=== PATIENT | male | born 1940 | race Caucasian/White ===

== ENCOUNTER → 2016-03-02 | Outpatient (CLI) | payer OTHER ==
--- NOTE | 2016-03-02 15:16 | DX ---
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 The patient has undergone numerous radiation therapy treatments and presents for baseline as sessment, but has not been reporting any dysphagia or a history of aspiration pneumonia. Technique: The patient was examined in the lateral projection, and this exam was performed in [facility] with Oneyda Mahan, the speech therapist. The patient ingested thin barium, nectar-consistency barium, applesauce coated with barium, a cracker coated with barium, and a barium tablet in applesau ce. Fluoroscopy Time: 3.1 minutes (exposure dose of 10.90 mCi). Comparison Study: None. Findings: There is oropharyngeal propulsion of the bolus into the hypopharynx; however, with thin li quids, there is nonsensate ("silent") epiglottic undercoating, vestibular penetration, and vin aspi ration. The patient was able to expectorate a portion of the material only when prompted. There is lack of appropriate inversion of the epiglottis, which touches the posterior pharyngeal wall. There was no nasopharyngeal reflux. There was some hypopharyngeal pooling in the vallecula. The upper eso phageal sphincter appears relatively normal, with no evidence of cricopharyngeus spasm. There was no aspiration observed with nectar consistency or thicker consistencies. The patient was able to inges t a 13-mm barium tablet, with prompt egress when mixed with the applesauce. Impression: Moderate pharyngeal dysphagia, with silent aspiration of thin liquids. Please also refer to the separate assessments and recommendations by the speech therapist.
== END ==
PROVIDERS: ATTEND Radiology Radiation Oncology
DX: R13.13 Dysphagia, pharyngeal phase (principal); Z85.89 Personal history of malignant neoplasm of other organs and systems; Z92.3 Personal history of irradiation
CPT/HCPCS: 74230; 92611; G8996; G8997; G8998

== ENCOUNTER → 2016-04-26 | Outpatient (CLI) | payer OTHER | PROVIDERS: ATTEND Radiology Radiation Oncology | DX: J38.4 Edema of larynx (principal); C32.9 Malignant neoplasm of larynx, unspecified | CPT/HCPCS: 74230; 92611; G8996; G8997; G8998 ==

== ENCOUNTER → 2016-05-18 | Outpatient (CLI) | payer OTHER ==
[~2016-05-18] MED LIST: IOPAMIDOL (ISOVUE 370) 100 ML BTL IV ONE
[2016-05-18 15:12] LABS: GLOMERULAR FILTRATION RATE > 60
== END ==
LOC: FIMAGING 14:30
PROVIDERS: ATTEND Internal Medicine Cardiovascular Disease
DX: I65.21 Occlusion and stenosis of right carotid artery (principal); I70.8 Atherosclerosis of other arteries; I42.9 Cardiomyopathy, unspecified
CPT/HCPCS: 70498; Q9967

== ENCOUNTER 2017-01-02 07:48 | Inpatient (IN) | payer OTHER ==
--- NOTE | 2017-01-02 07:15 | PDHPUP ---
History & Physical Update H&P update statement: This history and physical update is based on an assessment of the patient which was completed after admission or registration (within 24 hours), but prior to the surgery/procedure. H&P update: H&P reviewed & patient examined, no change in patient's condition since H&P completed
--- NOTE | 2017-01-02 07:44 | GHP ---
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 Of note, he also was found to have 80%-85% stenosis in the left subclavian arter y. These findings came after a possible episode of TIA involving about 20 minutes of a loss of rjaat ce after bumping into a wall in the dark, after waking up. He denies extremity weakness, visual hutson ges, slurred speech, cognition or facial droop. 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 He does have a pacemaker in place. PAST MEDICAL HISTORY: Laryngeal cancer as described above, coronary artery disease as described abov e, type 2 diabetes, hypertension, hyperlipidemia, ischemic cardiomyopathy, left bundle branch block, premature ventricular contractions, history of pneumonia, history of systolic heart failure, left low er extremity varicose veins. PAST SURGICAL HISTORY: AICD placement in 2014, coronary artery bypass graft in 2011, history of tons illectomy and adenoidectomy. MEDICATIONS: Aspirin, atorvastatin, Coreg, furosemide, lorazepam, losartan, metformin, nateglinide, Nitrostat, Prilosec, spironolactone. ALLERGIES: Diovan. FAMILY HISTORY: Stroke and hypertension. SOCIAL HISTORY: The patient does drink on occasion. Is a former tobacco smoker. REVIEW OF SYSTEMS: A 10-point review of systems negative aside from that noted in the HPI. PHYSICAL EXAMINATION: GENERAL: Reveals a well-groomed, pleasant, nontoxic-appearing male. SKIN: W arm and dry. HEENT: Normocephalic, atraumatic. Pupils are equal and round. No neck bruits. No sk in changes over neck from radiation treatment. CARDIAC: Regular rate and rhythm. Pacemaker implant . RESPIRATORY: Clear to auscultation bilaterally without increased work of breathing. EXTREMITIES: Warm, well perfused. No peripheral edema. NEURO: Grossly intact. PSYCH: Mood and affect normal . IMPRESSION: This is a 76-year-old male with a cardiac history and diabetes who is now found to have critical right carotid stenosis with possible history of transient ischemic attack. PLAN: Plan is to proceed with a right carotid endarterectomy with EEG monitoring. We will also get the rep to interrogate his pacer. Risks and options have been discussed including, but not limited t o, bleeding, infection, nerve injury, damage to surrounding structures, restenosis, stroke, heart att ack, and even and he requests to proceed. /[id number]/MODL
[2017-01-02] MEDS ORDERED: THROMBIN (BOVINE) 20,000 UNIT SPRAY TP ONE (08:16)
[2017-01-02] MEDS ORDERED: BUPIVACAINE 0.5% 30 ML SDV ONE (08:16)
[2017-01-02] MEDS ORDERED: BACITRACIN ZINC 14.2 GM OINTTUBE TP ONE (08:16)
[2017-01-02] MEDS ORDERED: ceFAZolin 2 GM/SWFI 2 GM/20 ML SYR IVP ONE (08:16)
[2017-01-02] MEDS ORDERED: PROTAMINE SULFATE 50 MG/5 ML VIAL IVP ONE (08:17)
[2017-01-02] MEDS ORDERED: PAPAVERINE HCL 60 MG/2 ML SDV ONE (08:18)
[2017-01-02] MEDS ORDERED: LR 1,000 ML IV ONE (08:18)
[2017-01-02] MEDS ORDERED: LIDOCAINE 1% 2 ML INJ ID PRN (08:18)
[2017-01-02 08:50] LABS: % IMMATURE GRANULYOCYTES 0.4 % (0.0-1.1); ABSOLUTE IMMATURE GRANULOCYTES 0.02 10^3/uL (0.00-0.10); ADD DIFF? NO; ADD MORPH? NO; ADD SCAN? NO; ATYPICAL LYMPHOCYTE FLAG 0 (0-99); FRAGMENT RBC FLAG 0 (0-99); HEMATOCRIT 34.8 % (40.0-51.0); HEMOGLOBIN 12.1 g/dL (13.7-17.5); LEFT SHIFT FLG 0 (0-99); LIPEMIA HEMOLYSIS FLAG 90 (0-99); MEAN CELL HEMOGLOBIN 32.5 pg (27.9-34.1); MEAN CELL HEMOGLOBIN CONCENTR. 34.8 g/dL (32.4-36.7); MEAN CELL VOLUME 93.5 fL (81.5-99.8); MEAN PLATELET VOLUME 8.7 fL (8.7-11.7); PLATELET CLUMPS FLAG 30 (0-99); PLATELET COUNT 206 10^3/uL (150-400); RED BLOOD CELL COUNT 3.72 10^6/uL (4.40-6.38); RED CELL DISTRIBUTION WIDTH 13.1 % (11.5-15.2)
[2017-01-02 09:08] LABS: ANION GAP 12 mEq/L (8-16); CALCIUM 9.5 mg/dL (8.5-10.4); CARBON DIOXIDE 27 mEq/l (22-31); CHLORIDE 105 mEq/L (97-110); GLOMERULAR FILTRATION RATE > 60; GLUCOSE 107 mg/dL (70-100); POTASSIUM 5.1 mEq/L (3.5-5.2); SODIUM 144 mEq/L (134-144)
--- NOTE | 2017-01-02 09:34 | PDANEPAE ---
ANE History of Present Illness 76 year old male presents for right carotid endarterectomy. ANE Past Medical History - Cardiovascular History Hx Hypertension: Yes Hx Arrhythmias: Yes Hx Chest Pain: No Hx Coronary Artery / Peripheral Vascular Disease: Yes Hx CHF / Valvular Disease: No Hx Palpitations: No - Pulmonary History Hx COPD: No Hx Asthma/Reactive Airway Disease: No Hx Recent Upper Respiratory Infection: No Hx Oxygen in Use at Home: Yes O2 in Use at Home (L/minute): 2 Hx Sleep Apnea: Yes Sleep Apnea Screening Result - Last Documented: Positive - Neurologic History Hx Cerebrovascular Accident: No Hx Seizures: No Hx Dementia: No - Endocrine History Hx Diabetes: Yes Hypothyroid: No Hyperthyroid: No Obesity: no - Renal History Hx Renal Disorders: No - Liver History Hx Hepatic Disorders: No - Neurological & Psychiatric Hx Hx Neurological and Psychiatric Disorders: Yes Neurological / Psychiatric History Comment: NEUROPATHY INTERMITTEN - Cancer History Hx Cancer: Yes Cancer History Comment: POLYP ON VOCAL CORD 2016 - Congenital Disorder History Hx Congenital Disorders: No - GI History GERD: mild Hx Gastrointestinal Disorders: Yes Gastrointestinal History Comment: REFLUX - Other Health History Other Health History: NONE - Chronic Pain History Chronic Pain: No - Surgical History Prior Surgeries: TRIPLE BYPASS 2011 ANE Review of Systems Review of systems is: negative Review of Systems: - Exercise capacity Exercise capacity: >=4 METS METS (RN): 4 METS - Pacemaker Pacemaker Type: Bi-Ventricular Pacemaker Technical Coordinator: [employer] Pacemaker Model: Quadra Assura Pacemaker Mode: DDD Date Pacemaker Last Checked: 10/25/16 ANE Patient History - Allergies Allergies/Adverse Reactions: valsartan [From Diovan] Allergy (Severe, Verified 08/12/14 11:37) Flushing bee stings Allergy (Intermediate, Uncoded 08/12/14 11:37) Other-Enter Comments - Home Medications Home medications: home medication list seen and reviewed Home Medications: RX: Aspirin [Aspirin 325 mg (*)] 325 mg PO DAILY 07/17/14 [Last Taken 12/29/16] RX: Carvedilol [Coreg (*)] 25 mg PO BIDMEAL 07/17/14 [Last Taken 01/02/17 05:30] RX: LORazepam [Ativan (*)] 1 mg PO HS 07/17/14 [Last Taken 01/01/17 19:30] RX: Losartan Potassium [Cozaar] 100 mg PO DAILY 07/17/14 [Last Taken 01/02/17] RX: Metformin HCl [Metformin 1000 mg] 1,000 mg PO BIDMEAL 07/17/14 [Last Taken 01/01/17 17:00] RX: Nateglinide [Starlix] 60 - 90 mg PO TIDMEAL 07/17/14 [Last Taken 01/01/17 16 :00] RX: Omeprazole [Prilosec 20 mg] 20 mg PO BID #0 07/17/14 [Last Taken 01/02/17 05 :25] RX: Spironolactone [Aldactone 25 MG (*)] 25 mg PO DAILY 07/17/14 [Last Taken 02/05 04:00] RX: Ascorbic Acid [Vitamin C 500 mg (*)] 500 mg PO BID 08/12/14 [Last Taken 11/06] RX: Cholecalciferol Vit D3 [Vitamin D3 (*)] 1,000 units PO BID 08/12/14 [Last Taken 12/29/16] RX: Furosemide [Lasix 40 MG (*)] 40 mg PO DAILY 08/12/14 [Last Taken 01/01/17] RX: Herbals/Supplements -Info Only 1 ea PO DAILY 08/12/14 [Last Taken 12/29/16] RX: [place]-3 Fatty Acids [Fish Oil 1000 mg (*)] 1,000 mg PO BID 08/12/14 [Last Taken 12/29/16] Atorvastatin Calcium [Lipitor 40 mg (*)] 40 mg PO HS 12/27/16 [Last Taken 20:00] Carvedilol [Coreg (*)] 12.5 mg PO DAILY@1130 12/27/16 [Last Taken 01/01/17 12:00 ] - NPO status NPO Status: no food or drink >8 hours NPO Since - Liquids (Date): 01/01/17 NPO Since - Liquids (Time): 19:30 NPO Since - Solids (Date): 01/01/17 NPO Since - Solids (Time): 16:00 - Anes Hx Anes Hx: no prior problems - Smoking Hx Smoking Status: Never smoked Marijuana use: No - Alcohol Use Alcohol Use: None - Family Anes Hx Family Anes Hx: neg - N/A Family Hx Anesthesia Complications: NONE ANE Labs/Vital Signs - Labs Result Diagrams: 01/02/17 08:30 01/02/17 08:30 - Vital Signs Vital Signs: reviewed preoperatively; see RN documention for details Blood Pressure: 111/68 Heart Rate: 74 Respiratory Rate: 16 O2 Sat (%): 93 Height: 172.72 cm Weight: 78.018 kg ANE Physical Exam - Airway Neck exam: decreased ROM Mallampati Score: Class 3 Mouth exam: dentures, small mouth opening, abnormal chin - Pulmonary Pulmonary: no respiratory distress - Cardiovascular Cardiovascular: regular rate and rhythym - ASA Status ASA Status: III ANE Anesthesia Plan Anesthesia Plan: general endotracheal anesthesia Total IV Anesthesia: No
[2017-01-02] MEDS ORDERED: fentaNYL 100 MCG/2 ML INJ ONE (09:45)
[2017-01-02] MEDS ORDERED: PROPOFOL 200 MG/20 ML VIAL ONE (09:45)
[2017-01-02] MEDS ORDERED: PHENYLEPHRINE HCL 100 MCG/ML SYR ONE ×2 (09:48→10:48)
[2017-01-02] MEDS ORDERED: ROCURONIUM 50 MG/5 ML VIAL ONE (10:43)
[2017-01-02] MEDS ORDERED: LIDOCAINE 2% 5 ML SDV ONE (10:44)
[2017-01-02] MEDS ORDERED: fentaNYL 100 MCG/2 ML INJ IVP PRN (10:46)
[2017-01-02] MEDS ORDERED: NALOXONE HCL 0.4 MG/ML INJ IVP PRN (10:46)
[2017-01-02] MEDS ORDERED: LR 500 ML IV PRN (10:46)
[2017-01-02] MEDS ORDERED: LABETALOL HCL 50 MG/10 ML SYR IVP PRN (10:46)
[2017-01-02] MEDS ORDERED: OXYCODONE/APAP 5/325 TAB PO PRN (10:46)
[2017-01-02] MEDS ORDERED: ONDANSETRON 4 MG/2 ML VIAL IVP PRN ×2 (10:46→11:49)
[2017-01-02] MEDS ORDERED: ONDANSETRON 4 MG/2 ML VIAL ONE (10:48)
[2017-01-02] MEDS ORDERED: DEXAMETHASONE 4 MG/ML VIAL ONE (10:48)
[2017-01-02] MEDS ORDERED: HEPARIN 10,000 UNIT/10 ML MDV ONE (11:38)
[2017-01-02] MEDS ORDERED: SUGAMMADEX SODIUM 200 MG/2 ML VIAL IVP ONE (11:38)
[2017-01-02] MEDS ORDERED: ENALAPRILAT DIHYDRATE 1.25 MG/ML VIAL IVP PRN (11:52)
[2017-01-02] MEDS ORDERED: NATEGLINIDE 60 MG TAB PO SCH (12:00)
[2017-01-02] MEDS ORDERED: D5W 1/2 NS 1,000 ML IV SCH (12:00)
[2017-01-02] MEDS ORDERED: HYDROmorphONE/DILAUDID 1 MG/ML INJ ONE (12:23)
[2017-01-02] MEDS: HYDROmorphONE/DILAUDID 1 MG/ML INJ IVP PRN ×3 (12:24→12:48)
--- NOTE | 2017-01-02 14:01 | GCON ---
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 HISTORY OF PRESENT ILLNESS: The patient is an extremely pleasant 76-year-old white male with a past medical history of laryngeal cancer, coronary artery disease, hypertension, diabetes, hyperlipidemia, ischemic cardiomyopathy, left bundle branch block, and varicose veins. He again was found to have a n 80% to 85% stenosis of the right internal carotid artery. In discussion with the patient, he state s overall he is doing quite well. He admits to being hungry. He states the pain is tolerable. Fermin es any cough or productive sputum. There is no chest pain, pleuritic-type chest pain or angina equiv alent. There is no fever or night sweats. He is currently resting comfortably. PAST MEDICAL HISTORY: As above. PAST SURGICAL HISTORY: He had an AICD placed, as well as coronary artery bypass graft, and tonsils a nd adenoids removed. ALLERGIES: Diovan. SOCIAL HISTORY: Previous heavy smoker, none for some time. No significant alcohol use. MEDICATIONS: At home include spironolactone, Prilosec, aspirin, atorvastatin, Coreg, Lasix, lorazepa m, losartan, metformin, nateglinide, and Nitrostat. PHYSICAL EXAM: VITAL SIGNS: Blood pressure 96/59. Pulse is 75, respirations 17. He is afebrile, o xygen saturation 96% on room air. GENERAL: He is a well-developed, well-nourished, elderly white ma le, resting comfortably in no acute distress. HEENT: Eyes are PERRL, EOMI. Throat shows no erythema or tonsillar hypertrophy. NECK: Supple. The right side of his neck is bandaged. HEART: Regular rate and rhythm, with a 2/6 systolic murmur at the left sternal border without radiation. LUNGS: Di minished breath sounds, but no wheeze. ABDOMEN: Soft, nontender. Bowel sounds are present. EXTREM ITIES: No clubbing, cyanosis, or edema. LABORATORY DATA: White count 5.3, hemoglobin 12, hematocrit 34. Platelet count is 206. Sodium 144, potassium 5.1, chloride 105. CO2 is 27, BUN 43, creatinine 1.0. Glucose is 107. IMPRESSION: 1. Carotid stenosis. 2. Status post right carotid endarterectomy. 3. History of laryngeal cancer. 4. Coronary artery disease. 5. Ischemic cardiomyopathy. 6. Diabetes. 7. Hypertension. RECOMMENDATIONS: 1. Adequate pain control. 2. Adequate blood pressure control. 3. Deep vein thrombosis and pulmonary embolism prophylaxis. 4. Stress ulcer prophylaxis. 5. Aggressive blood sugar control. /[id number]/MODL
[2017-01-02] MEDS: NATEGLINIDE 60 MG TAB PO SCH ×2 (14:31→18:17)
--- NOTE | 2017-01-02 15:56 | ASMTCMCOM ---
CM Note CM Note Notes: 76 year old male admitted for CP, Cardiomyopathy, Carotid stenosis. He has a hx of CAD and bypass, pacer, laryngeal CA, TIA. patient had a R endarterectomy. May not have discharge needs. CM to follow. Date Signed: 01/02/2017 03:55 PM Electronically Signed By:Yeimi Roth LCSW
[2017-01-02] MEDS ORDERED: DOPamine/DEXTROSE/250 ML BAG IV ONE (16:09)
[2017-01-02] MEDS ORDERED: PANTOPRAZOLE SODIUM 40 MG TAB PO ONE (17:33)
[2017-01-02] MEDS: metFORMIN HCL 500 MG TAB PO SCH (17:34)
[2017-01-02] MEDS: CARVEDILOL 25 MG TAB PO SCH (17:35)
--- NOTE | 2017-01-02 17:57 | GOP ---
[f rep st] OPERATIVE REPORT DATE OF OPERATION: 01/02/2017 SURGEON: Manoj Garduno MD [facility] ROLLER PERSON: ALICIA Burnett. ANESTHESIOLOGIST: Frantz Anderson MD. PREOPERATIVE DIAGNOSIS: Right carotid stenosis. POSTOPERATIVE DIAGNOSIS: Right carotid stenosis. PROCEDURE PERFORMED: Right carotid endarterectomy with EEG monitoring and Dacron patch. FINDINGS: Patient was found to have good neurologic function during the procedure and after the procedure, he did have some unusual evoked potential findings on his right median nerve, which may have been from external pressure on the OR table rather than from any vascular insufficiency flow problems. ESTIMATED BLOOD LOSS: Less than 50 cc. DESCRIPTION OF PROCEDURE: The patient taken to the operating room, received satisfactory general endotracheal anesthesia by Dr. Anderson. He was placed in the supine position, prepped and draped in usual sterile fashion. He was fully heparinized prior to induction of anesthesia, prepped and draped in usual sterile fashion. Incision was made along the anterior border of the sternocleidomastoid muscle and carried down through the platysma and superficial fascia. The carotid arterial tree was exposed. The facial vein was doubly ligated and divided, and the internal carotid, external carotid and common carotid arteries were all encircled with vessel loops. External carotid incorporated the inferior thyroid. The epiglottal nerve was elevated up, encircled with vessel loop and moved away from the carotid bifurcation. This required division of the ansa hypoglossis which was divided with hemoclips. The dissection extended well up behind the jaw and the vessels were all controlled with vessel loops. After adequate exposure was obtained, the patient was given additional heparin and after adequate circulation, the vessels were occluded. An incision was made in the common carotid artery and then opened up through the internal carotid to well above the markedly calcified stenotic plaque. Plaque extended proximally down the common carotid for some length making our arteriotomy nearly 3 inches in length in the final result. He had excellent backflow from the internal carotid artery and initially, no shunt was used. Expeditious endarterectomy was then done, removing this calcified plaque, which extended from the common carotid all the way up approximately 2.5 cm up the internal carotid artery. This was all removed. The vessels were all flushed. we did notice some unusual findings on his right median nerve, so a shunt was placed, which appeared to resolve the issue, although anatomically it did not match up. It may have been from external pressure against his arm or something during the procedure. The endarterectomy site was cleaned of all debris and all irrigated copiously. A Dacron patch was then placed on the carotid artery and sutured in place with a Hemashield 7 suture. We got nearly complete on the arteriotomy. The shunt was removed and all vessels were back flushed. The arteriotomy was completed and then flow was established through the external carotid artery and then through the internal carotid. He had no significant further EEG changes and all the changes noted had been returned to baseline shortly after the shunt was placed, and after any external pressure was relieved from his tucked right arm. Heparin was reversed with protamine. Suture line appeared to be hemostatic. Two additional small sutures were placed at leak sites. Although these were improving with a protamine reversal. The wound was sprayed with some topical thrombin, irrigated and then closed in layers using 3-0 Vicryl for the cervical fascia, 3-0 Vicryl for the platysma and a 4-0 Monocryl subcuticular stitch for the skin. The posterior superficial layers were infiltrated with 0.5% Marcaine. COMPLICATIONS: There were no complications. Tolerated the procedure well. /[id number]/MODL MTDD
[2017-01-02] MEDS ORDERED: NON-FORMULARY NEW DRUG (Metformin Hcl [Metformin 1000 Mg] 1,000 MG) PO SCH (18:00)
[2017-01-02] MEDS: OXYCODONE/APAP 5/325 TAB PO PRN ×2 (18:02→22:16)
[2017-01-02] MEDS ORDERED: NS 500 ML IV ONE (18:02)
[2017-01-02] MEDS: CALCIUM CARBONATE 500 MG CHEWABLE TAB PO PRN ×3 (18:16→23:24)
[2017-01-02] MEDS: ATORVASTATIN CALCIUM 40 MG TAB PO SCH (19:41)
[2017-01-02] MEDS: OMEPRAZOLE 20 MG PO SCH (20:38)
[2017-01-02] MEDS ORDERED: PANTOPRAZOLE SODIUM 40 MG TAB PO SCH (21:00)
[2017-01-02] MEDS ORDERED: LORazepam 0.5 MG TAB PO SCH (21:00)
[2017-01-02] MEDS ORDERED: ALBUMIN 5% 500 ML IV ONE (21:00)
--- NOTE | 2017-01-02 21:22 | POSTANESTH ---
Post Anesthetic Evaluation Cardiovascular Status: Normal, Stable, Similar to Pre-Op Cond Respiratory Status: Normal, Stable, Similar to Pre-op Cond. Level of Consciousness/Mental Status: Can Participate in Eval, Alert and Oriented Pain Control: Adequate, Prn Tx Ordered Nausea/Vomiting Control: Adequate, Prn Tx Ordered Complications Possibly Related to Anesthesia: None Noted
[2017-01-03] MEDS: HYDROmorphONE/DILAUDID 1 MG/ML INJ IVP PRN (02:22)
[2017-01-03] MEDS: CALCIUM CARBONATE 500 MG CHEWABLE TAB PO PRN ×2 (04:50→13:24)
[2017-01-03 05:00] LABS: HEMATOCRIT 26.1 % (40.0-51.0); HEMOGLOBIN 8.9 g/dL (13.7-17.5)
[2017-01-03 05:21] LABS: ANION GAP 10 mEq/L (8-16); CALCIUM 8.4 mg/dL (8.5-10.4); CARBON DIOXIDE 24 mEq/l (22-31); CHLORIDE 106 mEq/L (97-110); CREATININE 0.9 mg/dL (0.7-1.3); GLOMERULAR FILTRATION RATE > 60; GLUCOSE 106 mg/dL (70-100); POTASSIUM 4.6 mEq/L (3.5-5.2); SODIUM 140 mEq/L (134-144)
[2017-01-03] MEDS: OMEPRAZOLE 20 MG PO SCH ×2 (06:39→20:19)
[2017-01-03] MEDS: NATEGLINIDE 60 MG TAB PO SCH ×3 (07:40→17:50)
[2017-01-03] MEDS: CARVEDILOL 25 MG TAB PO SCH ×2 (07:44→17:50)
[2017-01-03] MEDS: LOSARTAN POTASSIUM 50 MG TAB PO SCH (07:44)
[2017-01-03] MEDS: metFORMIN HCL 500 MG TAB PO SCH ×2 (07:44→17:50)
[2017-01-03] MEDS: SPIRONOLACTONE 25 MG TAB PO SCH (07:45)
[2017-01-03] MEDS: ASPIRIN 325 MG TAB PO SCH (07:45)
[2017-01-03] MEDS: FUROSEMIDE 40 MG TAB PO SCH (07:45)
[2017-01-03] MEDS ORDERED: NON-FORMULARY NEW DRUG (Losartan Potassium [Cozaar] 100 MG) PO SCH (09:00)
[2017-01-03] MEDS: OXYCODONE/APAP 5/325 TAB PO PRN ×2 (10:30→20:18)
[2017-01-03] MEDS: CARVEDILOL 6.25 MG TAB PO SCH (11:44)
--- NOTE | 2017-01-03 17:00 | SOAPPROG ---
SOAP Progress Note Assessment/Plan: Assessment/Plan: 76 Y M s/p CEA. POD#1. Doing well. Pain controlled. Neuro exam intact. BP stable. Off dopamine. Dispo: med surg status. Likely home tomorrow. S: didn't sleep well last night. pain meds helping. denies weakness or any stroke like symptoms. O: alert, nad inc cdi, min swelling. pupils equal, round no wob rrr abd soft neuro grossly intact 01/03/17 16:58 Objective: Vital Signs Temp Pulse Resp BP Pulse Ox 36.8 C 89 16 107/37 L 88 L 01/03/17 15:23 01/03/17 15:23 01/03/17 15:23 01/03/17 15:23 01/03/17 15:23 Laboratory Results 01/03/17 04:45 01/03/17 04:45 01/02/17 01/03/17 01/04/17 05:59 05:59 05:59 Intake Total 3541 Output Total 950 175 Balance 2591 -175 ICD10 Worksheet Patient Problems: Problems Problem Status Onset Cardiomyopathy Acute Chest pain Acute Left bundle branch block Acute
[2017-01-03] MEDS: ATORVASTATIN CALCIUM 40 MG TAB PO SCH (20:19)
[2017-01-03] MEDS: LORazepam 1 MG TAB PO PRN (20:19)
[2017-01-04] MEDS: OMEPRAZOLE 20 MG PO SCH ×2 (07:16→19:59)
[2017-01-04] MEDS: NATEGLINIDE 60 MG TAB PO SCH ×3 (07:23→17:59)
[2017-01-04] MEDS: FUROSEMIDE 40 MG TAB PO SCH ×2 (07:24→07:32)
[2017-01-04] MEDS: CARVEDILOL 25 MG TAB PO SCH ×3 (07:24→18:11)
[2017-01-04] MEDS: ASPIRIN 325 MG TAB PO SCH (07:24)
[2017-01-04] MEDS: metFORMIN HCL 500 MG TAB PO SCH ×2 (07:24→18:00)
[2017-01-04] MEDS: SPIRONOLACTONE 25 MG TAB PO SCH ×2 (07:24→07:32)
[2017-01-04] MEDS: ENOXAPARIN 40 MG/0.4 ML SYR SC SCH (07:24)
[2017-01-04] MEDS: LOSARTAN POTASSIUM 50 MG TAB PO SCH (07:30)
--- NOTE | 2017-01-04 09:02 | SOAPPROG ---
SOAP Progress Note Assessment/Plan: Assessment/Plan: 76 Y M s/p CEA. POD#2. Hypotensive this am. systolic's 70's but now in high 90's while awake. Holding antihypertensives. H&H down, but doubt active bleeding. Neuro exam intact. Wounds intact. Will continue to observe today. Continue med surg status. Doubt discharge today 2/2 blood pressure concerns. Pt has roommate, but she is often not home. S: Finally slept well. Denies weakness or any stroke like symptoms. O: alert, nad inc cdi, min swelling. pupils equal, round no wob rrr abd soft neuro grossly intact 01/04/17 08:59 Objective: Vital Signs Temp Pulse Resp BP Pulse Ox 37.3 C 88 15 98/56 L 95 01/03/17 20:21 01/04/17 07:31 01/03/17 20:21 01/04/17 08:22 01/03/17 20:21 Laboratory Results 01/03/17 04:45 01/03/17 04:45 01/03/17 01/04/17 01/05/17 05:59 05:59 05:59 Intake Total 3541 1500 Output Total 950 575 Balance 7236 795 ICD10 Worksheet Patient Problems: Problems Problem Status Onset Cardiomyopathy Acute Chest pain Acute Left bundle branch block Acute
[2017-01-04] MEDS: CARVEDILOL 6.25 MG TAB PO SCH (12:01)
[2017-01-04] MEDS: HYDROmorphONE/DILAUDID 1 MG/ML INJ IVP PRN (19:58)
[2017-01-04] MEDS: LORazepam 1 MG TAB PO PRN (19:59)
[2017-01-04] MEDS: ATORVASTATIN CALCIUM 40 MG TAB PO SCH (19:59)
[2017-01-05] MEDS: OMEPRAZOLE 20 MG PO SCH (07:25)
[2017-01-05] MEDS: metFORMIN HCL 500 MG TAB PO SCH (07:26)
[2017-01-05] MEDS: CARVEDILOL 25 MG TAB PO SCH (07:26)
[2017-01-05] MEDS: ASPIRIN 325 MG TAB PO SCH (07:26)
[2017-01-05] MEDS: SPIRONOLACTONE 25 MG TAB PO SCH (07:26)
[2017-01-05] MEDS: NATEGLINIDE 60 MG TAB PO SCH ×2 (07:27→12:10)
[2017-01-05] MEDS: ENOXAPARIN 40 MG/0.4 ML SYR SC SCH (07:27)
[2017-01-05] MEDS: FUROSEMIDE 40 MG TAB PO SCH (07:29)
[2017-01-05] MEDS: LOSARTAN POTASSIUM 50 MG TAB PO SCH (07:30)
[2017-01-05 08:01] VITALS: BP 119/59; PULSE 79; RESP 18; TEMP 97.6; O2SAT 95
[2017-01-05] MEDS: CARVEDILOL 6.25 MG TAB PO SCH (11:29)
--- NOTE | 2017-01-05 12:25 | SOAPPROG ---
ANDRE Progress Note Assessment/Plan: Assessment: Neuro intact/wound okay/vital signs stable/no new problems Plan: Home today/follow-up in the office next week/continue aspirin and statin and his blood pressure meds 01/05/17 12:24 Objective: Vital Signs Temp Pulse Resp BP Pulse Ox 36.4 C 79 18 119/59 L 95 01/05/17 08:00 01/05/17 08:00 01/05/17 08:00 01/05/17 08:00 01/05/17 08:00 Laboratory Results 01/03/17 04:45 01/03/17 04:45 01/04/17 01/05/17 01/06/17 05:59 05:59 05:59 Intake Total 1500 Output Total 575 Balance 925 ICD10 Worksheet Patient Problems: Problems Problem Status Onset Cardiomyopathy Acute Chest pain Acute Left bundle branch block Acute
--- NOTE | 2017-01-05 12:33 | ASMTCMCOM ---
CM Note CM Note Notes: Spoke w/RN, anticipate pt will dc home w/support of family when medically stable. CM available for any changes. Date Signed: 01/05/2017 12:33 PM Electronically Signed By:Precious Perez RN
--- NOTE | 2017-01-05 13:53 | ASDISCHSUM ---
Discharge Information Plan Status:Home with No Needs Medically Cleared to Leave: Discharge Date:01/05/2017 12:50 PM CM D/C Disposition:Home, Routine, Self-Care ADT D/C Disposition:Home, Routine, Self-Care Projected Discharge Date:01/05/2017 12:50 PM Transportation at D/C:Family Discharge Delay Reason: Follow-Up Date:01/05/2017 12:50 PM Discharge Slot: Final Diagnosis:Carotid stenosis Placement Information Patient Contact Information Contact Name:TING Relationship:Daughter Address: City: [facility] Phone: [facility]/Zip Code:[place] Email: Financial Information Financial Class:Medicare Advantage Plans Primary Plan Desc:[facility] ADVANTAGE PLANS Primary Plan Number:[id number] Secondary Plan Desc: Secondary Plan Number: Assessment Information [facility] CM Progress Note CM Note CM Note Notes: 76 year old male admitted for CP, Cardiomyopathy, Carotid stenosis. He has a hx of CAD and bypass, pacer, laryngeal CA, TIA. patient had a R endarterectomy. May not have discharge needs. CM to follow. Date Signed: 01/02/2017 03:55 PM Electronically Signed By:Yeimi Roth LCSW [facility] CM Progress Note CM Note CM Note Notes: Spoke w/RN, anticipate pt will dc home w/support of family when medically stable. CM available for any changes. Date Signed: 01/05/2017 12:33 PM Electronically Signed By:Precious Perez RN Intervention Information
== END 2017-01-05 12:50 | disposition home or self-care (01) | DRG 39 ==
LOC: F3N 07:48 → F2N 13:09 → F3E 01-04 12:51
PROVIDERS: ADMIT Surgery; ATTEND Surgery
DX: I65.21 Occlusion and stenosis of right carotid artery (principal); I25.10 Atherosclerotic heart disease of native coronary artery without angina pectoris; I10 Essential (primary) hypertension; E11.9 Type 2 diabetes mellitus without complications; E78.5 Hyperlipidemia, unspecified; Z95.0 Presence of cardiac pacemaker; Z95.1 Presence of aortocoronary bypass graft; Z85.21 Personal history of malignant neoplasm of larynx; Z92.3 Personal history of irradiation
CPT/HCPCS: C1768; J0690; J1100; J1170; J1265; J1644; J1650; J2370; J2405; J2440; J2704; J2720; J3010; P9041

== ENCOUNTER → 2017-07-28 | Outpatient (CLI) | payer OTHER | LOC: FIMAGING 07:01 | PROVIDERS: ATTEND Registered Nurse | DX: K40.90 Unilateral inguinal hernia, without obstruction or gangrene, not specified as recurrent (principal); E87.5 Hyperkalemia ==

== ENCOUNTER 2017-09-14 07:01 | Day surgery (SDC) | payer OTHER ==
--- NOTE | 2017-09-11 10:51 | GHP ---
[f rep st] PREOP HISTORY AND PHYSICAL DATE OF ADMISSION: 09/14/2017 CHIEF COMPLAINT: Left inguinal hernia. HISTORY OF PRESENT ILLNESS: The patient is a 76-year-old male known to us from a right carotid endar terectomy in December of 2016, who also has a history of AICD placement and coronary artery bypass gr aft x3, who presents to us with a new left inguinal hernia. He thinks it started with leg presses. He says he works out regularly for the past 5 years. He notices a palpable bulge with pressure in hi s left groin. He has no urinary symptoms. He denies chronic cough, constipation, or prior abdominal surgery. PAST MEDICAL HISTORY: Anemia, angina, anxiety, ascending aorta dilation, AICD, coronary artery disea se, cardiomyopathy, carotid artery disease, depression, diabetes mellitus type 2, eczema, hyperlipide stepan, hypertension, ischemic cardiomyopathy, laryngeal cancer, left bundle branch block, nocturnal hyp oxia, pneumonia, PVCs, peripheral vascular disease, systolic heart failure (acute on chronic), varico se veins of the left lower extremity. PAST SURGICAL HISTORY: AICD placement, carotid endarterectomy, coronary artery bypass graft, tonsill ectomy and adenoidectomy. MEDICATIONS: Vitamin C 500 mg, aspirin 325 mg, atorvastatin 40 mg, cholecalciferol 1000 units, Coreg 25 mg, furosemide 40 mg, lorazepam 1 mg, losartan 100 mg, metformin 1000 mg, nateglinide 60 mg, Pril osec 20 mg, spironolactone 25 mg. ALLERGIES: Diovan. FAMILY MEDICAL HISTORY: Cerebrovascular accident, hypertension. SOCIAL HISTORY: Former tobacco user, alcohol. REVIEW OF SYSTEMS: Ten-point review of systems was performed and is negative, aside from what is in the HPI. PHYSICAL EXAM: GENERAL: Reveals an alert and oriented 76-year-old male who is well developed and we ll nourished. HEENT: Normocephalic, atraumatic. Pupils are equal and round. NECK: Supple, no nec k bruits, well-healed scar. CARDIAC: Regular rate and rhythm, without murmurs. RESPIRATORY: Clear to auscultation bilaterally, without wheezes, rhonchi, or rales. ABDOMEN: Soft, nontender, nondist ended. A small reducible left inguinal hernia. No right inguinal hernias appreciated. : No test icular tenderness, or masses. MUSCULOSKELETAL: Moves all extremities equally, warm, without edema. NEURO: Grossly intact. PSYCHIATRIC: Normal mood and affect. IMPRESSION/PLAN: This is a 76-year-old male with a small reducible left inguinal hernia. We discuss ed both laparoscopic and open surgical repair. He is a good candidate for laparoscopic repair; howev er, he knows that there is always a possibility that we may have to make an open incision. He did re ceive cardiac clearance by Dr. Gilma Keller. He has a pacemaker and defibrillator. We discussed all o ptions and risks fully. Risks of surgery include, but are not limited to, infection, bleeding, testi cular pain, spermatic cord injury, reherniation, heart attack, and . Patient understands and wi shes to proceed with surgery. /[id number]/MODL
[2017-09-14] MEDS ORDERED: ceFAZolin 2 GM/DEXTROSE 100 ML IV ONE (07:24)
[2017-09-14] MEDS ORDERED: BUPIVACAINE 0.25% 30 ML SDV ONE ×2 (07:25→08:58)
[2017-09-14] MEDS ORDERED: LR 1,000 ML IV ONE (07:25)
[2017-09-14] MEDS ORDERED: LIDOCAINE 1% 2 ML INJ ID PRN (07:53)
[2017-09-14] MEDS ORDERED: LIDOCAINE 1% 2 ML INJ ONE (07:56)
--- NOTE | 2017-09-14 08:09 | PDANEPAE ---
ANE Past Medical History - Cardiovascular History Hx Hypertension: Yes Hx Arrhythmias: Yes Hx Chest Pain: No Hx Coronary Artery / Peripheral Vascular Disease: Yes Hx CHF / Valvular Disease: No Hx Palpitations: No Cardiovascular History Comment: CARDIOMYOPATHY (EF 45%) - Pulmonary History Hx COPD: No Hx Asthma/Reactive Airway Disease: No Hx Recent Upper Respiratory Infection: No Hx Oxygen in Use at Home: Yes O2 in Use at Home (L/minute): 1.5 Hx Sleep Apnea: No Sleep Apnea Screening Result - Last Documented: Positive Pulmonary History Comment: HS HYPOXIA USES OXYGEN - Neurologic History Hx Cerebrovascular Accident: No Hx Seizures: No Hx Dementia: No - Endocrine History Hx Diabetes: Yes Hypothyroid: No Hyperthyroid: No Obesity: no Endocrine History Comment: NIDDM - Renal History Hx Renal Disorders: No - Liver History Hx Hepatic Disorders: No - Neurological & Psychiatric Hx Hx Neurological and Psychiatric Disorders: Yes Neurological / Psychiatric History Comment: NEUROPATHY INTERMITTENT - Cancer History Hx Cancer: Yes 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 TOUCH OF EXCEMA MAINLY IN WINTER. CALDERON CATARACT. FULL DENTURES - Chronic Pain History Chronic Pain: Yes (LT ING) - Surgical History Prior Surgeries: RT CAROTID ENDARECTOMY 12/2016. DEFIBRILATOR 07/2014. TRIPLE BYPASS 2011. T&A ANE Review of Systems Review of Systems: - Exercise capacity METS (RN): 5 METS - Pacemaker Pacemaker Type: Bi-Ventricular Pacemaker Cardiac Sonographer: St. Sudeep Date Pacemaker Last Checked: 05/01/2017 ANE Patient History - Allergies Allergies/Adverse Reactions: valsartan [From Diovan] Allergy (Severe, Verified 08/12/14 11:37) Flushing bee stings Allergy (Intermediate, Uncoded 08/12/14 11:37) Other-Enter Comments - Home Medications Home Medications: Carvedilol [Coreg (*)] 25 mg PO BIDMEAL 07/17/14 [Last Taken 09/14/17 04:45] LORazepam [Ativan (*)] 1 mg PO HS 07/17/14 [Last Taken 09/13/17] Losartan Potassium [Cozaar] 100 mg PO DAILY 07/17/14 [Last Taken 09/14/17 04:45] Metformin HCl [Metformin 1000 mg] 1,000 mg PO BIDMEAL 07/17/14 [Last Taken 09/12] Nateglinide [Starlix] 60 - 90 mg PO TIDMEAL 07/17/14 [Last Taken 09/13/17] Omeprazole [Prilosec 20 mg] 20 mg PO BID #0 07/17/14 [Last Taken 09/14/17 04:45] Spironolactone [Aldactone 25 MG (*)] 25 mg PO DAILY 07/17/14 [Last Taken ] Ascorbic Acid [Vitamin C 500 mg (*)] 500 mg PO BID 08/12/14 [Last Taken 09/12/17 ] Cholecalciferol Vit D3 [Vitamin D3 (*)] 1,000 units PO BID 08/12/14 [Last Taken 09/12/17] Furosemide [Lasix 40 MG (*)] 40 mg PO DAILY 08/12/14 [Last Taken 09/13/17] Herbals/Supplements -Info Only 1 ea PO DAILY 08/12/14 [Last Taken 09/12/17] Atorvastatin Calcium [Lipitor 40 mg (*)] 40 mg PO HS 12/27/16 [Last Taken 20:00] Carvedilol [Coreg (*)] 12.5 mg PO DAILY@1130 12/27/16 [Last Taken 09/13/17 12:00 ] - NPO status NPO Since - Liquids (Date): 09/14/17 NPO Since - Liquids (Time): 04:45 NPO Since - Solids (Date): 09/13/17 NPO Since - Solids (Time): 17:00 - Anes Hx Anes Hx: no prior problems - Smoking Hx Smoking Status: Never smoked Marijuana use: No - Family Anes Hx Family Anes Hx: neg - N/A Family Hx Anesthesia Complications: NONE ANE Labs/Vital Signs - Vital Signs Blood Pressure: 128/82 Heart Rate: 74 Respiratory Rate: 12 O2 Sat (%): 93 Height: 172.72 cm Weight: 76.204 kg ANE Physical Exam - Airway Neck exam: FROM Mallampati Score: Class 2 Mouth exam: dentures - Pulmonary Pulmonary: no respiratory distress, no rales or rhonchi, clear to auscultation - Cardiovascular Cardiovascular: regular rate and rhythym - ASA Status ASA Status: III ANE Anesthesia Plan Anesthesia Plan: general endotracheal anesthesia Total IV Anesthesia: No
[2017-09-14] MEDS ORDERED: fentaNYL 100 MCG/2 ML INJ ONE (08:59)
[2017-09-14] MEDS ORDERED: REMIFENTANIL HCL 1 MG VIAL ONE (08:59)
[2017-09-14] MEDS ORDERED: ONDANSETRON 4 MG/2 ML VIAL ONE ×2 (08:59→14:58)
[2017-09-14] MEDS ORDERED: PROPOFOL/EMULSION 500 MG/50 ML BOTTLE IV ONE (08:59)
[2017-09-14] MEDS ORDERED: KETOROLAC 30 MG/1 ML SDV ONE (09:00)
[2017-09-14] MEDS ORDERED: LIDOCAINE 2% 5 ML SDV ONE (09:00)
[2017-09-14] MEDS ORDERED: PHENYLEPHRINE HCL 100 MCG/ML SYR ONE (09:22)
[2017-09-14] MEDS ORDERED: oxyCODONE IR 5 MG TAB PO PRN (09:39)
[2017-09-14] MEDS ORDERED: ACETAMINOPHEN 500 MG TAB PO PRN (09:39)
[2017-09-14] MEDS ORDERED: PROMETHAZINE HCL 25 MG/ML INJ IVP PRN (09:39)
[2017-09-14] MEDS ORDERED: LR 500 ML IV PRN (09:39)
[2017-09-14] MEDS ORDERED: NALOXONE HCL 0.4 MG/ML INJ IVP PRN (09:39)
[2017-09-14] MEDS ORDERED: HYDROCODONE/APAP 5/325 TAB PO PRN (09:39)
[2017-09-14] MEDS ORDERED: fentaNYL 100 MCG/2 ML INJ IVP PRN (09:39)
[2017-09-14] MEDS ORDERED: ONDANSETRON 4 MG/2 ML VIAL IVP PRN (09:39)
[2017-09-14] MEDS ORDERED: ROCURONIUM 50 MG/5 ML VIAL ONE (09:42)
[2017-09-14] MEDS ORDERED: NEOSTIGMINE METHYLSULFATE 5 MG/5 ML SYR ONE (10:14)
[2017-09-14] MEDS ORDERED: GLYCOPYRROLATE 0.2 MG/1 ML VIAL ONE ×5 (10:14→10:25)
--- NOTE | 2017-09-14 10:27 | POSTOPPROG ---
Post Op Note Date of Operation: 09/14/17 Surgeon: Manoj Garduno Plastic Battery Assembler: Tylor Anesthesiologist: Phani Anesthesia: GET(General Endotracheal) Pre-op Diagnosis: Left inguinal hernia Post-op Diagnosis: same Indication: pain Procedure: Lap LIH repair Findings: No RIH Inf/Abcess present in the surg proc area at time of surgery?: No Depth: Organ Space EBL: Minimal
--- NOTE | 2017-09-14 11:30 | POSTANESTH ---
Post Anesthetic Evaluation Cardiovascular Status: Normal, Stable Respiratory Status: Normal, Stable Level of Consciousness/Mental Status: Can Participate in Eval Pain Control: Adequate, Prn Tx Ordered Nausea/Vomiting Control: Adequate, Prn Tx Ordered Complications Possibly Related to Anesthesia: None Noted
[2017-09-14 16:24] VITALS: BP 152/84
[2017-09-14] MEDS ORDERED: CEPACOL LOZENGE PO ONE (17:25)
--- NOTE | 2017-09-15 13:24 | GOP ---
[f rep st] OPERATIVE REPORT DATE OF OPERATION: 09/14/2017 SURGEON: Manoj Garduno MD PREOPERATIVE DIAGNOSIS: Left inguinal hernia. POSTOPERATIVE DIAGNOSIS: Left inguinal hernia. PROCEDURE PERFORMED: Laparoscopic left inguinal hernia repair and exploration of the right. FINDINGS: Patient was found to have a large indirect defect on the left, which consists of primarily lipoma. On the right there was no evidence of true herniation. Exposure was somewhat difficult to d o because of the weakness of his peritoneum, which made it difficult to dissect the space free. DESCRIPTION OF PROCEDURE: The patient was taken to the operating room where he received a satisfacto ry general endotracheal anesthesia by Dr. Jeronimo. He was placed in supine position, prepped and draped in usual sterile fashion. An infraumbilical incision was made. Dissection was carried down the rectus sheath, which was incised. A subfascial tunnel was developed in the preperitoneal space th at was dissected free with a balloon dissector, which was replaced with CO2 insufflation trocar. Our exposure was limited because of stretching and tearing of the peritoneum from the balloon dissectors . Two other trocars were placed in lower abdominal midline under direct vision. Monico ligament was exposed bilaterally. The cords were mobilized bilaterally. Peritoneum was dissected off the cord s tructures. On the left side there is a large lipomatous tissue and hernia sac were dissected free and reduced. The lateral space was dissected free outside the cord structures. Hemostasis was assured. The 3D mesh patch was introduced and placed over the inguinal floor. It was anchored in place with AbsorbaTack, securing it to Monico ligament. The peritoneum, which had been torn was brought up over the mesh to cover the mesh. This was anchored in place with AbsorbaTack. Attention was turned to the right side where the cord was dissected free. There was no significant l ipoma or indirect or direct hernia defect on that side. Trocars removed under direct vision. Trocar sites were closed with 0 Vicryl for the fascia, 4-0 Monocryl subcuticular stitch for the skin. All layers infiltrated with 0.5% Marcaine. Blood loss was negligible. He was taken to recovery room in g ood condition. /[id number]/MODL
== END 2017-09-14 17:55 | disposition home or self-care (01) ==
LOC: FSGY 07:01
PROVIDERS: ATTEND Surgery
PROC: 0YJ54ZZ Inspection of Right Inguinal Region, Percutaneous Endoscopic Approach (ICD-10-PCS; principal; 2017-09-14 08:30)
PROC: 0YU64JZ Supplement Left Inguinal Region with Synthetic Substitute, Percutaneous Endoscopic Approach (ICD-10-PCS; principal; 2017-09-14 08:30)
PROC: 0YQ64ZZ Repair Left Inguinal Region, Percutaneous Endoscopic Approach (ICD-10-PCS; principal; 2017-09-14 08:30)
DX: K40.90 Unilateral inguinal hernia, without obstruction or gangrene, not specified as recurrent (principal); I10 Essential (primary) hypertension; E11.9 Type 2 diabetes mellitus without complications; E78.5 Hyperlipidemia, unspecified; Z79.82 Long term (current) use of aspirin; Z86.79 Personal history of other diseases of the circulatory system; Z85.21 Personal history of malignant neoplasm of larynx; Z87.891 Personal history of nicotine dependence
CPT/HCPCS: C1727; C1781; J0690; J1885; J2370; J2405; J2704; J2710; J3010

== ENCOUNTER 2017-09-14 22:20 | Emergency (ER) | payer OTHER ==
--- NOTE | 2017-09-14 23:07 | EDPHY ---
H & P Stated Complaint: SX TODAY L INGUINAL TOLD TO COME IN CAN'T URINATE BY 2300 Time Seen by Provider: 09/14/17 23:07 HPI/ROS: HPI CHIEF COMPLAINT: Can't urinate, recent surgery HISTORY OF PRESENT ILLNESS: 76-year-old male, history of CABG, as well as GERD , recently had an inguinal hernia repaired earlier today by Dr. Garduno. Presents emergency room after he states he can't urinate. Patient states that they wanted to place a Prieto catheter in him prior to being discharged he cannot urinate after surgery however he declined went home. Presents back to the emergency room 11 o'clock at night stating that he still has not urinated. He has the urge to go but is unable to do so. Additionally reports a burning sensation in his chest. He reports to me that he suffers from GERD seizure control Prilosec however after being extubated he is worsening reflux. Denies any chest pain. Also he reports to me a very sore throat. Past Medical History: CABG, recent inguinal hernia additional history, AICD, no left bundle branch block, diabetes, hyperlipidemia, ischemic cardiomyopathy, TIA, carotid stenosis Past Surgical History: CABG Social History: Denies drugs alcohol tobacco. Family History: Noncontributory ROS REVIEW OF SYSTEMS: A comprehensive 10 point review of systems is otherwise negative aside from elements mentioned in the history of present illness. Exam Constitutional elderly, nontoxic appearing, triage nursing summary reviewed, vital signs reviewed, awake/alert. Eyes normal conjunctivae and sclera, EOMI, PERRLA. HENT normal inspection, atraumatic, moist mucus membranes, no epistaxis, neck supple/ no meningismus, no raccoon eyes. Respiratory clear to auscultation bilaterally, normal breath sounds, no respiratory distress, no wheezing. Cardiovascular rate normal, regular rhythm, no murmur, no edema, distal pulses normal. Gastrointestinal laparoscopic incisions appear clean, dry and intact, mild suprapubic tenderness. no rebound, no guarding, normal bowel sounds, no distension, no pulsatile mass. Genitourinary no CVA tenderness. Musculoskeletal no midline vertebral tenderness, full range of motion, no calf swelling, no tenderness of extremities, no meningismus, good pulses, neurovascularly intact. Skin pink, warm, & dry, no rash, skin atraumatic. Neurologic awake, alert and oriented x 3, AAOx3, moves all 4 extremities equally, motor intact, sensory intact, CN II-XII intact, normal cerebellar, normal vision, normal speech. Psychiatric normal mood/affect. Heme/Lymph/Immune no lymphadenopathy. Differential Diagnosis: Includes but is not limited to in a particular order urinary retention, urinary outflow obstruction, reflux, GERD, esophageal spasm Medical Decision Making: Plan for this patient chest x-ray, EKG, troponin, Prieto catheter for urinary outflow obstruction or retention status post surgery , laparoscopic sites appear intact and clean. No signs of infection. No bleeding. Abdomen is soft. Will gently IV hydrate as well. Re-evaluation: EKG interpretation by me on record in [facility] system. Impression time of EKG 2335: Entry sense ventricularly paced rhythm. No signs of cardiac arrhythmia acute ischemia. Blood work reviewed troponin negative. 1223: Re-examination the patient had 450 cc out status post Prieto catheter placement. Patient is getting an IV fluid bolus for hydration given that he has had a long day and surgery and only at 450 cc in his bladder after Prieto catheter placement. Additionally as for his heartburn this is improved after GI cocktail. His EKG was nonischemic negative troponin. Will continue to monitor the patient. EKG interpretation by me on record in [facility] system. Impression this is a repeat EKG, atrially sensed ventricularly paced rhythm overlying right bundle- branch block. No ST elevation no significant ST depression. 0155: Repeat troponin 0.02. Repeat EKG nonischemic and similar to previous EKGs paced rhythm, bundle-branch block present. Atrially sensed and ventricularly paced rhythm. Patient is not having any chest pain. In terms GERD he feels much better after GI cocktail. States it is completely resolved. Terms of his urinary retention he had a Prieto catheter placed with good urine output and is feeling much better. It is now 2:00 a.m. And patient is requesting be discharged home. I do feel comfortable allowing to go home however he understands if he develops abdominal pain fever vomiting chest pain or shortness of breath he should return to the emergency room he understands this. Source: Patient - Personal History Current Tetanus Diphtheria and Acellular Pertussis (TDAP): Yes Tetanus Vaccine Date: >10 YRS - Medical/Surgical History Hx Asthma: No Hx Chronic Respiratory Disease: No Hx Diabetes: Yes Hx Cardiac Disease: Yes Hx Renal Disease: No Hx Cirrhosis: No Hx Alcoholism: No Hx HIV/AIDS: No Hx Splenectomy or Spleen Trauma: No Other PMH: PSHX: Triple bipass 2011, L INGUINAL HERNIA REPAIR 2018. PMHx: diabetes type 2, HTN, FACUNDO - Social History Smoking Status: Never smoked Constitutional: Initial Vital Signs Temperature (C) 36.5 C 09/14/17 22:23 Heart Rate 97 09/14/17 22:23 Respiratory Rate 16 09/14/17 22:23 Blood Pressure 147/69 H 09/14/17 22:23 O2 Sat (%) 97 09/14/17 22:23 O2 Delivery Mode Room Air O2 (L/minute) 2 Allergies/Adverse Reactions: valsartan [From Survatavan] Allergy (Severe, Verified 08/12/14 11:37) Flushing bee stings Allergy (Intermediate, Uncoded 08/12/14 11:37) Other-Enter Comments Home Medications: Medication Instructions Recorded Carvedilol [Coreg (*)] 25 mg PO BIDMEAL 07/17/14 LORazepam [Ativan (*)] 1 mg PO HS 07/17/14 Losartan Potassium [Cozaar] 100 mg PO DAILY 07/17/14 Metformin HCl [Metformin 1000 mg] 1,000 mg PO BIDMEAL 07/17/14 Nateglinide [Starlix] 60 - 90 mg PO TIDMEAL 07/17/14 Omeprazole [Prilosec 20 mg] 20 mg PO BID #0 07/17/14 Spironolactone [Aldactone 25 MG 25 mg PO DAILY 07/17/14 (*)] Ascorbic Acid [Vitamin C 500 mg 500 mg PO BID 08/12/14 (*)] Cholecalciferol Vit D3 [Vitamin D3 1,000 units PO BID 08/12/14 (*)] Furosemide [Lasix 40 MG (*)] 40 mg PO DAILY 08/12/14 Herbals/Supplements -Info Only 1 ea PO DAILY 08/12/14 Atorvastatin Calcium [Lipitor 40 40 mg PO HS 12/27/16 mg (*)] Carvedilol [Coreg (*)] 12.5 mg PO DAILY@1130 12/27/16 oxyCODONE IR [Oxycodone Ir (*)] 5 - 10 mg PO Q4HRS PRN #20 tab 09/14/17 Medical Decision Making - Data Points Laboratory Results: Laboratory Results 09/14/17 23:30 09/14/17 23:30 09/15/17 09/14/17 09/14/17 01:23 23:40 23:34 WBC RBC Hgb Hct MCV MCH MCHC RDW Plt Count MPV Neut % (Auto) Lymph % (Auto) [place] % (Auto) Eos % (Auto) Baso % (Auto) Nucleat RBC Rel Count Absolute Neuts (auto) Absolute Lymphs (auto) Absolute Monos (auto) Absolute Eos (auto) Absolute Basos (auto) Absolute Nucleated RBC Immature Gran % Immature Gran # Sodium Potassium Chloride Carbon Dioxide Anion Gap BUN Creatinine Estimated GFR Glucose Calcium Magnesium Total Bilirubin Conjugated Bilirubin Unconjugated Bilirubin AST ALT Alkaline Phosphatase POC Troponin I 0.02 ng/mL ng/mL 0.05 ng/mL ng/mL (0.00-0.08) (0.00-0.08) Total Protein Albumin Lipase Urine Color YELLOW Urine Appearance HAZY Urine pH 5.0 (5.0-7.5) Ur Specific [place] 1.021 (1.002-1.030) Urine Protein NEGATIVE (NEGATIVE) Urine Ketones NEGATIVE (NEGATIVE) Urine Blood NEGATIVE (NEGATIVE) Urine Nitrate NEGATIVE (NEGATIVE) Urine Bilirubin NEGATIVE (NEGATIVE) Urine Urobilinogen NEGATIVE EU EU (0.2-1.0) Ur Leukocyte Esterase NEGATIVE (NEGATIVE) Urine Glucose NEGATIVE (NEGATIVE) 09/14/17 09/14/17 23:30 23:30 WBC 8.72 10^3/uL 10^3/uL (3.80-9.50) RBC 3.97 10^6/uL L 10^6/uL (4.40-6.38) Hgb 12.4 g/dL L g/dL (13.7-17.5) Hct 36.3 % L % (40.0-51.0) MCV 91.4 fL fL (81.5-99.8) MCH 31.2 pg pg (27.9-34.1) MCHC 34.2 g/dL g/dL (32.4-36.7) RDW 14.5 % % (11.5-15.2) Plt Count 200 10^3/uL 10^3/uL (150-400) MPV 8.7 fL fL (8.7-11.7) Neut % (Auto) 82.1 % H % (39.3-74.2) Lymph % (Auto) 7.7 % L % (15.0-45.0) [place] % (Auto) 8.7 % % (4.5-13.0) Eos % (Auto) 1.1 % % (0.6-7.6) Baso % (Auto) 0.2 % L % (0.3-1.7) Nucleat RBC Rel Count 0.0 % % (0.0-0.2) Absolute Neuts (auto) 7.15 10^3/uL H 10^3/uL (1.70-6.50) Absolute Lymphs (auto) 0.67 10^3/uL L 10^3/uL (1.00-3.00) Absolute Monos (auto) 0.76 10^3/uL 10^3/uL (0.30-0.80) Absolute Eos (auto) 0.10 10^3/uL 10^3/uL (0.03-0.40) Absolute Basos (auto) 0.02 10^3/uL 10^3/uL (0.02-0.10) Absolute Nucleated RBC 0.00 10^3/uL 10^3/uL (0-0.01) Immature Gran % 0.2 % % (0.0-1.1) Immature Gran # 0.02 10^3/uL 10^3/uL (0.00-0.10) Sodium 135 mEq/L mEq/L (135-145) Potassium 4.6 mEq/L mEq/L (3.3-5.0) Chloride 98 mEq/L mEq/L (97-110) Carbon Dioxide 26 mEq/l mEq/l (22-31) Anion Gap 11 mEq/L mEq/L (8-16) BUN 45 mg/dL H mg/dL (7-23) Creatinine 1.1 mg/dL mg/dL (0.7-1.3) Estimated GFR > 60 Glucose 137 mg/dL H mg/dL (70-100) Calcium 9.6 mg/dL mg/dL (8.5-10.4) Magnesium 1.8 mg/dL mg/dL (1.6-2.3) Total Bilirubin 0.7 mg/dL mg/dL (0.1-1.4) Conjugated Bilirubin 0.0 mg/dL mg/dL (0.0-0.5) Unconjugated Bilirubin 0.7 mg/dL mg/dL (0.0-1.1) AST 27 IU/L IU/L (17-59) ALT 24 IU/L IU/L (21-72) Alkaline Phosphatase 28 IU/L L IU/L (38-126) POC Troponin I Total Protein 6.7 g/dL g/dL (6.3-8.2) Albumin 4.2 g/dL g/dL (3.5-5.0) Lipase 55 IU/L IU/L (23-300) Urine Color Urine Appearance Urine pH Ur Specific [place] Urine Protein Urine Ketones Urine Blood Urine Nitrate Urine Bilirubin Urine Urobilinogen Ur Leukocyte Esterase Urine Glucose Medications Given: Discontinued Medications Al Hydroxide/Mg Hydroxide (Maalox Susp) 30 ml PO ONCE ONE Stop: 09/14/17 23:19 Last Admin: 09/14/17 23:23 Dose: 30 ml Hyoscyamine Sulfate (Levsin, Hyomax-Sl) 0.25 mg PO ONCE ONE Stop: 09/14/17 23:19 Last Admin: 09/14/17 23:23 Dose: 0.25 mg Sodium Chloride (Ns) 1,000 mls @ 0 mls/hr IV ONCE ONE PRN Reason: Wide Open Stop: 09/14/17 23:24 Last Admin: 09/14/17 23:51 Dose: 1,000 mls Lidocaine (Lidocaine 2% Viscous) 15 ml PO ONCE ONE Stop: 09/14/17 23:19 Last Admin: 09/14/17 23:23 Dose: 15 ml Point of Care Test Results: Chemistry 09/15/17 09/14/17 01:23 23:34 POC Troponin I 0.02 ng/mL ng/mL 0.05 ng/mL ng/mL (0.00-0.08) (0.00-0.08) Departure - Departure Disposition: Home, Routine, Self-Care Clinical Impression: Urinary retention Instructions: Urinary Retention in Men (ED), Gastroesophageal Reflux Disease ( ED) Additional Instructions: 1. Return to the emergency room if you have worsening chest pain or shortness of breath. 2. Prieto in place. 3. Follow up with your surgeon as well as Urology. 4. Return to the emergency room if there is any worsening symptoms questions or concerns. Referrals: Zoila Estevez MD [Primary Care Provider] - As per Instructions Janiya Neal MD [Medical Doctor] - As per Instructions
[2017-09-14] MEDS ORDERED: LIDOCAINE 2% JELLY 20 ML (UROJECT) ONE (23:16)
[2017-09-14] MEDS ORDERED: LIDOCAINE 2% VISCOUS 15 ML UDCUP PO ONE (23:18)
[2017-09-14] MEDS ORDERED: HYOSCYAMINE SULFATE 0.125 MG TAB PO ONE (23:18)
[2017-09-14] MEDS ORDERED: MAG HYDROX/AL HYDROX/SIMETH 30 ML UDCUP PO ONE (23:18)
[2017-09-14] MEDS ORDERED: NS 1,000 ML IV ONE (23:23)
--- NOTE | 2017-09-14 23:36 | CPEKG ---
Heart Rate: 89 RR Interval: 674 P-R Interval: 164 QRSD Interval: 116 QT Interval: 388 QTC Interval: 473 P [place]: 7 QRS [place]: 117 T Wave [place]: 36 EKG Severity - ABNORMAL ECG - EKG Impression: ATRIAL-SENSED VENTRICULAR-PACED RHYTHM Electronically Signed By: Morgan Alvarez 15-Sep-2017 06:55:31
[2017-09-14 23:40] LABS: PLATELET COUNT 200 10^3/uL (150-400)
[2017-09-15 02:09] VITALS: BP 134/72
== END 2017-09-15 02:08 | disposition home or self-care (01) ==
DX: R33.9 Retention of urine, unspecified (principal); E11.9 Type 2 diabetes mellitus without complications; I10 Essential (primary) hypertension; Z79.84 Long term (current) use of oral hypoglycemic drugs
CPT/HCPCS: 84484-PO

== ENCOUNTER 2017-09-15 09:50 | Emergency (ER) | payer OTHER ==
--- NOTE | 2017-09-15 11:52 | EDPHY ---
H & P Time Seen by Provider: 09/15/17 11:51 HPI/ROS: Chief complaint. Blood in urine HPI. 76-year-old male presents emergency department with blood in urine. He had a inguinal hernia repair yesterday. He was having difficulty urinating last night and was seen in the emergency department. A Prieto catheter was placed. He noted blood in his catheter this morning and it seems to be clearing now. No pain. Concerned about infection. ROS Constitutional. no fever/chills, no weakness Eyes. no problems with vision ENT. no sore throat, no nasal drainage Cardiovascular. no chest pain Respiratory. no shortness of breath, no cough Abdominal. no abdominal pain, no nausea/vomiting, no diarrhea . Blood in Prieto catheter bag this morning MS. no calf pain/swelling, no neck/back pain, no joint pain Skin. no rash Lymph. no swollen glands Neuro. no headache, no dizziness, no difficulty walking or with speech Past Medical/Surgical History: Inguinal hernia repair yesterday. CABG, diabetes, hypertension Social History: Single, nonsmoker, no alcohol Smoking Status: Former smoker Physical Exam: General Appearance: Alert pleasant well-developed male mild distress vital signs stable Eyes: Pupils equal and round no pallor or injection. ENT, Mouth: Mucous membranes are moist. Respiratory: There are no retractions, lungs are clear to auscultation. Cardiovascular: Regular rate and rhythm. Gastrointestinal: Abdomen is soft and nontender, no masses, bowel sounds normal. Blood in urine bag. Neurological: Awake and alert, sensory and motor exams grossly normal. Skin: Warm and dry, no rashes. Musculoskeletal: Neck is supple nontender. Extremities symmetrical, full range of motion. Psychiatric: Patient is oriented X 3, there is no agitation. Constitutional: Initial Vital Signs Temperature (C) 36.7 C 09/15/17 10:00 Heart Rate 87 09/15/17 10:00 Respiratory Rate 18 09/15/17 10:00 Blood Pressure 135/67 H 09/15/17 10:00 O2 Sat (%) 97 09/15/17 10:00 O2 Delivery Mode Room Air Allergies/Adverse Reactions: valsartan [From Diovan] Allergy (Severe, Verified 09/15/17 09:59) Flushing bee stings Allergy (Intermediate, Uncoded 08/12/14 11:37) Other-Enter Comments Home Medications: Medication Instructions Recorded Carvedilol [Coreg (*)] 25 mg PO BIDMEAL 07/17/14 LORazepam [Ativan (*)] 1 mg PO HS 07/17/14 Losartan Potassium [Cozaar] 100 mg PO DAILY 07/17/14 Metformin HCl [Metformin 1000 mg] 1,000 mg PO BIDMEAL 07/17/14 Nateglinide [Starlix] 60 - 90 mg PO TIDMEAL 07/17/14 Omeprazole [Prilosec 20 mg] 20 mg PO BID #0 07/17/14 Spironolactone [Aldactone 25 MG 25 mg PO DAILY 07/17/14 (*)] Ascorbic Acid [Vitamin C 500 mg 500 mg PO BID 08/12/14 (*)] Cholecalciferol Vit D3 [Vitamin D3 1,000 units PO BID 08/12/14 (*)] Furosemide [Lasix 40 MG (*)] 40 mg PO DAILY 08/12/14 Herbals/Supplements -Info Only 1 ea PO DAILY 08/12/14 Atorvastatin Calcium [Lipitor 40 40 mg PO HS 12/27/16 mg (*)] Carvedilol [Coreg (*)] 12.5 mg PO DAILY@1130 12/27/16 oxyCODONE IR [Oxycodone Ir (*)] 5 - 10 mg PO Q4HRS PRN #20 tab 09/14/17 Medical Decision Making ED Course/Re-evaluation: Re-evaluation at 1:05 p.m.. Patient is stable. He and I discussed laboratory evaluation, treatment plan including criteria for return importance of follow- up further evaluation. Patient tells me that he called the urologist this morning to whom he had been referred and they will not see him because he has Medicare. He request name of another urologist. Differential Diagnosis: This appears to be traumatic hematuria likely from the Prieto catheter. It is clearing. There is no evidence for infection. The urine is sent for culture and sensitivity - Data Points Laboratory Results: 09/15/17 12:30 Urine Color PALE YELLOW Urine Appearance CLEAR Urine pH 5.0 (5.0-7.5) Ur Specific [place] 1.006 (1.002-1.030) Urine Protein NEGATIVE (NEGATIVE) Urine Ketones NEGATIVE (NEGATIVE) Urine Blood 3+ H (NEGATIVE) Urine Nitrate NEGATIVE (NEGATIVE) Urine Bilirubin NEGATIVE (NEGATIVE) Urine Urobilinogen NEGATIVE EU EU (0.2-1.0) Ur Leukocyte Esterase NEGATIVE (NEGATIVE) Urine RBC 50-182 /hpf H /hpf (0-3) Urine WBC 3-5 /hpf H /hpf (0-3) Ur Epithelial Cells TRACE /lpf /lpf (NONE-1+) Urine Bacteria TRACE /hpf H /hpf (NONE SEEN) Urine Glucose NEGATIVE (NEGATIVE) Departure - Departure Disposition: Home, Routine, Self-Care Clinical Impression: Hematuria Qualifiers: Hematuria type: gross Qualified Code(s): R31.0 - Gross hematuria Condition: Good Instructions: Prieto Catheter Placement and Care (ED) Additional Instructions: There is no sign of infection in your urine today Return for worsening bleeding. Follow-up with urologist or your regular physician on Monday or Monday to have the catheter removed Referrals: Zoila Estevez MD [Primary Care Provider] - As per Instructions Emanuel Segal MD [Medical Doctor] - As per Instructions
[2017-09-15 13:48] VITALS: BP 128/87
== END 2017-09-15 13:47 | disposition home or self-care (01) ==
DX: R31.0 Gross hematuria (principal); I10 Essential (primary) hypertension; E11.9 Type 2 diabetes mellitus without complications; Z79.84 Long term (current) use of oral hypoglycemic drugs; Z87.891 Personal history of nicotine dependence

== ENCOUNTER 2018-05-16 09:09 | Observation (INO) | payer OTHER ==
[2018-05-16] MEDS ORDERED: OXYCODONE/APAP 5/325 TAB PO ONE (09:23)
[2018-05-16] MEDS ORDERED: DIAZEPAM 5 MG TAB PO ONE (09:23)
--- NOTE | 2018-05-16 09:23 | EDPHY ---
H & P Stated Complaint: fell backward lifting weights this morning low back pain Time Seen by Provider: 05/16/18 09:19 HPI/ROS: HPI: This is a 77-year-old male who presents with Chief Complaint: fell backward lifting weights this morning low back pain Location: Midline lower back Quality: Injury, pain Duration: 1-2 hours prior to arrival Signs and Symptoms: No bleeding, no radiation, no numbness, no weakness, no tingling, no incontinence,+ decreased range of motion, no swelling, + pain, no fever Timing: Acute, constant Severity: 08/29 Context: Patient was lifting weights this morning by himself at the gym when he attempted to lift 100 pounds on metal bar. He reports that he lost control and fell backwards landing on weight directly on his lower back. He reports that he felt immediate, constant, nonradiating pain. He reports that he "laid there for a few minutes" before he was able to get himself up off the floor. He then drove himself to the emergency room. Denies LOC/head injury/neck pain/ dizziness/nausea/vomiting/amnesia. Denies change in bowel or bladder habits. He is ambulatory albeit a slow gait. Modifying Factors: Has not taking any [id number] medications Comment: ROS: A comprehensive 10 system review of systems is otherwise negative aside from elements mentioned in the history of present illness. MEDICAL/SURGICAL/SOCIAL HISTORY: PSHX: Triple bypass 2012, L INGUINAL HERNIA REPAIR 2018 PMHx: diabetes type 2, HTN, FACUNDO Social history: Retired, former smoker CONSTITUTIONAL: Polite and cooperative, elderly white male, able to stand from a seated position in a wheelchair and transfer to the ER stretcher without assistance, awake and alert, moderate distress HEENT: Atraumatic and normocephalic. NECK: supple, no midline tenderness, flexion 45 degrees, extension 45 degrees, right and left lateral flexion 45 degrees. No meningismus. Cardiovascular: Normal S1/S2, regular rate, regular rhythm, without murmur rub or gallop. PULMONARY/CHEST: Symmetrical and nontender. no crepitus. Clear to auscultation bilaterally. Good air movement. No accessory muscle usage. ABDOMEN: Soft, nondistended, nontender, no ecchymosis. PELVIC: no pain with rocking; bilateral hips flexion 125 degrees, extension 30 degrees, with no pain internal rotation and no pain external rotation. BACK: Moderate lower lumbar midline tenderness, no paraspinous spasm, deep tendon reflexes 2/2, moderate pain with straight leg raise, No foot drop. Achilles reflexes are equal bilaterally. EXTREMITIES: 2/2 pulses, strength 5/5, DIP/PIP/MCP flexion/extension intact with good light touch sensation. no deformities, no clubbing, no cyanosis or edema. NEUROLOGICAL: no focal neuro deficits. GCS 15. Light touch sensation intact. SKIN: Warm and dry, no erythema. no rash. Good capillary refill. Source: Patient Exam Limitations: No limitations - Personal History Current Tetanus Diphtheria and Acellular Pertussis (TDAP): Yes Tetanus Vaccine Date: >10 YRS - Medical/Surgical History Hx Asthma: No Hx Chronic Respiratory Disease: No Hx Diabetes: Yes Hx Cardiac Disease: Yes Hx Renal Disease: No Hx Cirrhosis: No Hx Alcoholism: No Hx HIV/AIDS: No Hx Splenectomy or Spleen Trauma: No Other PMH: PSHX: Triple bipass 2011, L INGUINAL HERNIA REPAIR 2017. PMHx: diabetes type 2, HTN, FACUNDO - Social History Smoking Status: Former smoker Constitutional: Initial Vital Signs Temperature (C) 36.4 C 05/16/18 09:16 Heart Rate 72 05/16/18 09:16 Respiratory Rate 18 05/16/18 09:16 Blood Pressure 126/68 H 05/16/18 09:16 O2 Sat (%) 90 L 05/16/18 09:16 O2 Delivery Mode Nasal Cannula O2 (L/minute) 2 Allergies/Adverse Reactions: valsartan [From Diovan] Allergy (Severe, Verified 05/16/18 09:12) Flushing bee stings Allergy (Intermediate, Uncoded 08/12/14 11:37) Other-Enter Comments Home Medications: Medication Instructions Recorded Carvedilol [Coreg (*)] 25 mg PO BIDMEAL 07/17/14 LORazepam [Ativan (*)] 1 mg PO HS 07/17/14 Losartan Potassium [Cozaar] 100 mg PO DAILY 07/17/14 Metformin HCl [Metformin 1000 mg] 1,000 mg PO BIDMEAL 07/17/14 Nateglinide [Starlix] 90 mg PO TIDMEAL 07/17/14 Omeprazole [Prilosec 20 mg] 20 mg PO DAILY #0 07/17/14 Spironolactone [Aldactone 25 MG 25 mg PO DAILY 07/17/14 (*)] Ascorbic Acid [Vitamin C 500 mg 500 mg PO BID 08/12/14 (*)] Cholecalciferol Vit D3 [Vitamin D3 1,000 units PO BID 08/12/14 (*)] Furosemide [Lasix 40 MG (*)] 40 mg PO DAILY 08/12/14 Herbals/Supplements -Info Only 1 ea PO DAILY 08/12/14 Atorvastatin Calcium [Lipitor 40 40 mg PO HS 12/27/16 mg (*)] Carvedilol [Coreg (*)] 12.5 mg PO DAILY@1130 12/27/16 Acetaminophen [Tylenol 325mg (*)] 650 mg PO Q6 PRN 05/16/18 Medical Decision Making - Diagnostics Imaging Results: Imaging Impressions Lumbar Spine CT 05/16/18 09:23 Impression: 1. L1 burst fracture with minimal retropulsion and no high-grade central spinal stenosis. Tamera Dobbs was notified these findings by telephone at 9:57 AM on 05/16/2018 ED Course/Re-evaluation: VS reviewed and shows O2 sats 90% on room air. Patient is guarding secondary to pain and suspect this is related to shallow breathing. Placed on cardiac care nurse with continuous pulse ox. O2 nasal cannula continuous applied. Fall was mechanical in nature and no signs of seizure activity, CVA, acute coronary syndrome Will obtain CT lumbar without contrast. Percocet and Valium 2.5 mg given. 1000: Called by radiologist, Dr. Barnes, who reports that CT lumbar spine shows L1 burst fracture with approximately 50% loss of vertebral body height and minimal retropulsion of the posterior cortex. Fracture fragments at the superior endplate which effaces the ventral thecal sac without high-grade central stenosis. Linear fracture line is seen extending vertically from the superior to inferior endplate without significant displacement. 1005: IV access and laboratory studies obtained. ED decision to consult hospitalist and Neurosurgery for admission. Patient lives alone in a 2 story condo with two Schmitt retrievers. After much convincing, and vocalization of concern for fall precautions, ability to perform activities of daily living, patient is agreeable to hospital admission. 1010: Spoke with Dr. Levy who advised patient is appropriate to brace and will consult on the patient. Spoke with Lashawn, hospitalist, who kindly agrees to admit the patient under the care of Dr. Patel. 1036: Laboratory studies reviewed. WBC 11 K with mild normocytic anemia noted , no coagulopathy, BUN 52, creatinine 1.3 No signs of neurovascular compromise/tenting of skin/compartment syndrome/ extremities and joints examined above and below area of concern and are neurovascularly intact/cauda equina syndrome. This patient was seen under the supervision of my secondary supervising physician. I evaluated care for this patient with attending. Differential Diagnosis: Back pain including but not limited to muscular pain, herniated disc, spine fracture, intra-abdominal causes and urinary tract infection. - Data Points Medications Given: Discontinued Medications Diazepam (Valium) 2.5 mg PO EDNOW ONE Stop: 05/16/18 09:24 Last Admin: 05/16/18 09:33 Dose: 2.5 mg Oxycodone/Acetaminophen (Percocet 5/325) 1 tab PO EDNOW ONE Stop: 05/16/18 09:24 Last Admin: 05/16/18 09:33 Dose: 1 tab Departure - Departure Disposition: [facility] Inpatient Acute Clinical Impression: Intractable low back pain, Acute renal insufficiency Closed L1 vertebral fracture Qualifiers: Encounter type: initial encounter Fracture morphology: burst- stable Qualified Code(s): S32.011A - Stable burst fracture of first lumbar vertebra, initial encounter for closed fracture Fall from standing Qualifiers: Encounter type: initial encounter Qualified Code(s): W19.XXXA - Unspecified fall, initial encounter Condition: Fair
[2018-05-16 10:35] LABS: PLATELET COUNT 186 10^3/uL (150-400)
[2018-05-16] MEDS ORDERED: ONDANSETRON 4 MG/2 ML VIAL IVP PRN (10:37)
[2018-05-16] MEDS ORDERED: ACETAMINOPHEN 325 MG TAB PO PRN (10:37)
[2018-05-16] MEDS ORDERED: ZOLPIDEM TARTRATE 5 MG TAB PO PRN (10:37)
[2018-05-16] MEDS ORDERED: NS 1,000 ML IV SCH (10:45)
[2018-05-16 10:47] LABS: INR 1.1 (0.83-1.16); PROTIME(PATIENT) 13.8 SEC (12.0-15.0)
--- NOTE | 2018-05-16 10:51 | PDGENHP ---
History and Physical History and Physical: CC: Back pain after a fall HISTORY: The patient brought himself to the ER today by car after an injury fall at a local gym. He describes attempting a weightlifting maneuver that he had never done before. This is a calf muscle exercise where a weight bar is placed across a rack at shoulder height, and the person stands underneath the bar such that it is behind the neck and shoulders, grabs the bar with both hands and goes up on toes with ankle plantar flexion to lift await. He says he did this with a 100 lb weight Bar, and realized after he picked up that it was too high and he did not have the strength to get back on to the rack. At that point he lost balance and the bar pulled him back. He flexed at the waist and landed on his buttock and suffered immediate pain in the low spine area. After a few minutes he was able to get up on his feet, and he walked out and drove himself here. There is no pain at the neck or shoulders arms or hands. He does not have numbness or tingling. At this time as I am visiting him he complains of pain mostly in the upper bilateral buttock/sacral areas. In the ER CT scan was done of the lumbar spine showing a compression fracture with burst pattern at L1, without significant retropulsion and without compromise of the spinal canal. ROS: A comprehensive 10 system review revealed no other significant findings PAST MEDICAL HISTORY: CAD, CABG 2011 - stable at this time nerve with no recent symptoms Systolic CHF - stable at this time with no recent symptoms Left bundle branch block Biventricular pacing which brings his ejection fraction from 30% to 45% for the past 3 years Carotid artery stenosis, carotid endarterectomy Diabetes mellitus type 2 Hypertension TIA Chronic hypoxemic respiratory failure, uses oxygen at night Sleep apnea Laryngeal carcinoma status post radiation treatment Former tobacco use Hernia repair FAMILY MEDICAL HISTORY: No concerning or relevant family history SOCIAL HISTORY: Former smoker Rare use of alcohol 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 I have reviewed the list and ordered appropriate medicines. 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: Examination: General: alert, oriented, good mentation, relaxed; lying supine in bed and overall comfortable in that position at this time with moderate pain subjectively Skin: warm, dry, good color, no rash HEENT: normal Neck: no mass or jvd Resps: relaxed Lungs: clear breath sounds Heart: regular, no murmur Abdomen: soft, nondistended, nontender, +BS, no mass Upper Extremities: normal Lower Extremities: no edema, warm No Bleeding or bruising Neurologic: normal speech/language, normal psychology professor IV site: looks normal LABORATORY DATA: White blood cell count 28336 with predominance neutrophils Mild anemia hemoglobin 12.7 which appears to be his baseline, normocytic Normal platelets RADIOLOGY STUDIES: I reviewed images of CT scan of the lumbar spine done in the ER today, and there is L1 vertebral body fracture that has vertical compression in endplate deformity but also some features of a burst type fracture without significant displacement and at least by CT no evidence of spinal canal stenosis of significance, certainly no retropulsed bony fragments or significant bone spurs impacting canal. There is atherosclerosis of the aorta and iliac arteries but the appear widely patent present (though this is not a vascular study) 12 LEAD EKG: ASSESSMENT: * Mechanical Fall with injury * Burst fracture of L1, without evidence of retropulsed fragments or canal stenosis * Likely osteoporosis given his age and fracture * History of systolic congestive heart failure * Bypass surgery for coronary disease in 2012 * History of TIA and carotid endarterectomy * Diabetes mellitus type 2 * History of hypertension * Chronic hypoxemic respiratory failure with nocturnal oxygen at home PLANS: * Inpatient admission as the patient will require 48 hr minimum here before he will be able to adequately safely ambulate * Brace has been ordered by Neurosurgery * Activity restrictions per Neurosurgery * Celebrex * Muscle relaxers * P.r.n. Analgesic * Fall risk precautions * Physical occupational therapy * Continue his usual cardiac medicines * Monitor blood sugars, continue his usual regimen for now but adjust as necessary * Will test for vitamin-D * He should have consideration for bone density testing in the outpatient setting I have reviewed the patient's case in detail with Robert Gutierrez of neurosurg I have reviewed the patient's past medical records as part of this assessment, including previous hospital admission records
--- NOTE | 2018-05-16 12:12 | ASMTLACE ---
RENETTA Acuity / Level of Answers: Yes Care: Did the patient have an inpatient admission? Comorbidities - select Answers: Cerebrovascular disease all that apply (CVA, TIA, aneurysms, vasc ular dementia) Congestive heart failure Coronary Artery Disease Diabetes (uncontrolled or controlled) Opioid dependence / Chronic pain Previous myocardial infarction Other Notes: HTN # of Emergency department Answers: 1-2 visits in the last 6 months Score: 16 Date Signed: 05/16/2018 12:11 PM Electronically Signed By:Melita Yoder
[2018-05-16] MEDS: oxyCODONE IR 5 MG TAB PO PRN ×3 (12:47→22:00)
[2018-05-16] MEDS: CARVEDILOL 6.25 MG TAB PO SCH (12:49)
[2018-05-16] MEDS: NATEGLINIDE 60 MG TAB PO SCH ×2 (12:49→17:07)
[2018-05-16] MEDS: metFORMIN HCL 500 MG TAB PO SCH ×2 (12:49→17:07)
--- NOTE | 2018-05-16 14:34 | PDMN ---
Medical Necessity Medical necessity: Pt meets IP criteria as of 05/16/2018 per MD and BRENDA CHAMPION- ( Musculoskeletal Disease GRG); est los > 2 mn for ongoing tx and management of L1 burst fracture s/p mechanical fall; requiring pain control, neurosurgery consultation and PT/OT; comorbid CAD, CABG, systolic CHF, L BBB, AICD placement , DM II, HTN, TIA, FACUNDO, laryngeal carcinoma, and hernia repair.
[2018-05-16] MEDS ORDERED: LACTULOSE 20 GM/30 ML UDCUP PO PRN (15:11)
[2018-05-16] MEDS ORDERED: POLYETHYLENE GLYCOL 3350 17 GM PKT PO PRN (15:11)
[2018-05-16] MEDS ORDERED: MAGNESIUM HYDROXIDE 30 ML UDCUP PO PRN (15:11)
[2018-05-16] MEDS ORDERED: BISACODYL 10 MG SUPP PR PRN (15:11)
--- NOTE | 2018-05-16 15:12 | GCON ---
[f rep st] CONSULTATION CONSULTATION/HISTORY AND PHYSICAL CHIEF COMPLAINT: 1. Back pain after fall. 2. L1 compression fracture. HISTORY OF PRESENT ILLNESS: The patient is a 77-year-old male who is still quite active. He works o ut in the gym on a daily basis. He states this morning he was lifting weights at about 6:30 a.m. He was by himself at the gym. He was doing some calf raises with a 100-pound barbell. When he was doi ng this, he felt like he lost control of this. He fell backwards and landed directly on his lower ba ck. He describes to me that he landed directly on his tailbone. Immediately after that, he had some constant lower back pain that was nonradiating. Currently, he denies any numbness or tingling. No weakness or pain in his lower extremities. He has isolated lumbar spine pain. He has no cervical sp ine pain, no thoracic pain. The patient states after he fell, he laid there for a few minutes. He w as then able to get himself up off the floor. He then drove himself home, spoke with his neighbor sophie sewell then came to the emergency department via private car. He actually drove himself to the hospital. Currently denies any loss of consciousness. No headache or head injury. He denies any neck pain or thoracic spine pain. He denies any chest pain or shortness of breath. No dizziness, nausea, vomiti ng. He is not amnestic at all. He is able to recall the exact details of his injury today. There a re no changes in his bowel or bladder habits. No saddle numbness. He did get x-rays done including a CT scan, which showed an L1 compression fracture. He was admitted to the internal medicine service and we were consulted for this L1 compression fracture management, along with Internal Medicine. REVIEW OF SYSTEMS: A complete 10-point review of systems was reviewed and otherwise negative other t herrera noted in HPI and as below. PAST MEDICAL HISTORY: Significant for the followin. Coronary artery disease and a CABG in 2011. 2. Systolic congestive heart failure. 3. Left bundle branch block. 4. AICD placement. 5. Carotid endarterectomy with carotid arterial stenosis in the past. 6. Diabetes type 2. 7. Hypertension. 8. TIA. 9. Sleep apnea. 10. Laryngeal carcinoma, status post radiation treatment. 11. The patient also had a hernia repair. PAST SURGICAL HISTORY: Please see above. FAMILY HISTORY: Reviewed and noncontributory. SOCIAL HISTORY: Patient is a former smoker, rarely uses alcohol. 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 He exercises on a daily basis. MEDICATIONS: Please see med rec form in the EMR. IMMUNIZATIONS: Reported up to date. TRAVEL: No recent travel. PHYSICAL EXAM: GENERAL: This is an awake, alert, oriented male in no acute distress. MOST RECENT V ITAL SIGNS: Blood pressure 111/61 with a MAP of 77, 84 heart rate, 16 respirations, 90% on 2 L, and a temperature of 36.6. HEENT: Head is normocephalic, atraumatic. Pupils are equal, round, reactive to light. EOMI is intact. Full visual dover by confrontation. Ears are patent. Nose is patent. NECK: Soft and supple. Midline tenderness. Full range of motion in flexion, extension, lateral be nding and rotation. RESPIRATORY: Deferred. CARDIAC: Deferred. ABDOMEN: Soft, nontender. No per itoneal signs. : Deferred. RECTAL: Deferred. NEURO: The patient is awake, alert, oriented to name, place, location, date, time and situation. Memory is intact to immediate, past, current events . Speech: No aphasia, dysarthria, dysphonia. Cranial nerves 2-12 grossly intact. Motor: The lauren ent has 5/5 strength in all muscle groups of the bilateral upper and lower extremities to include del toids, biceps, triceps, brachioradialis, wrist flexion and extensors, doctor of naprapathy intrinsic fingers, iliopso as, quadriceps, hamstring, plantar flexion, dorsiflexion, EHL testing. Sensation is grossly intact t o light touch throughout all dermatome distributions upper extremities. Negative straight leg raise. Negative MONISHA test. Reflexes of the biceps, triceps, brachioradialis, knee jerk and ankle jerk 2+/ 4. Toes are downgoing bilaterally. Wilfrido's negative. Babinski negative. No evidence of clonus. MEDICAL DECISION MAKING/DIAGNOSTIC STUDIES: Laboratory tests obtained on 05/16/2018 show a white cou nt of 11.02 with an H and H of 12.7 and 38.4, platelet count of 186. Coags on 05/16/2018 show a PT o f 13.8, INR of 1.10, and a PTT of 32.3. Chemistry on 05/16/2018 shows sodium 137, potassium 4.8, chl oride 26, BUN 52, creatinine 1.3, and a glucose of 113. Imaging: Lumbar CT scan obtained 05/16/2018 at 0923 shows an L1 minimal burst fracture with minimal retropulsion. No high-grade central stenosis. IMPRESSION: 1. Fall. 2. Multiple medical conditions including heart disease, being managed and treated by internal medici ne. 3. L1 burst fracture with minimal retropulsion. PLAN/DISCUSSION: The patient is a very active 77-year-old male who was admitted to the internal medi cine service. We were consulted for an L1 compression fracture and burst fracture. We recommended a [place] brace placement for him. I will order this and also some upright x-rays when that is obtaine d. We also started some Robaxin 500 mg b.i.d. to help with some of the back pain that he is having. He has isolated low back pain. He has no upper or lower extremity complaints such as numbness, ting ling, weakness or pain. He has no saddle numbness. The patient was seen and evaluated both by mihaela stone and Dr. Grover. All questions and concerns were answered. Patient understands and agrees. /[id number]/MODL
[2018-05-16] MEDS: CARVEDILOL 25 MG TAB PO SCH (17:07)
[2018-05-16] MEDS: METHOCARBAMOL 500 MG TAB PO SCH ×2 (17:07→22:01)
[2018-05-16] MEDS ORDERED: LORazepam 0.5 MG TAB PO SCH (21:00)
[2018-05-16] MEDS ORDERED: MELATONIN 3 MG TAB PO SCH (21:00)
[2018-05-16] MEDS ORDERED: ATORVASTATIN CALCIUM 40 MG TAB PO SCH (21:00)
[2018-05-16] MEDS: CHOLECALCIFEROL VIT D3 1,000 UNITS TAB PO SCH (22:00)
[2018-05-16] MEDS: ASCORBIC ACID 500 MG TAB PO SCH (22:01)
[2018-05-16] MEDS: SENNOSIDES/DOCUSATE SODIUM TAB PO SCH (22:01)
[2018-05-17] MEDS: oxyCODONE IR 5 MG TAB PO PRN ×2 (06:06→12:10)
--- NOTE | 2018-05-17 07:07 | NEUSURGPN ---
Assessment/Plan: 77 year old male with L1 compression fracture - neuro stable - [place] brace to be worn when out of bed - upright x-rays stable - no surgical intervention - stable from neurosurgery standpoint for discharge - will sign off and follow peripherally, follow up with Dr. Grover in 3-[address] Grover. Subjective: Back pain improved this morning. No LE symptoms. Objective: Awake. Alert. PERRL. EOMI Facial expression symmetrical Muscle strength full at 5/5 Sensation intact - Physician Discussed Patient with Dr.: Other (Lenore) Neurosurgery Physical Exam - Vitals, I&O, Labs I and O 05/16/18 05/17/18 05/18/18 05:59 05:59 05:59 Intake Total 1130 600 Output Total 500 Balance 630 600 Weight 78.018 kg Intake: Oral (ml) 1130 IV Infused (ml) 600 Ns 1,000 ml @ 75 mls/hr 600 IV CONT [place] Rx#: [id number] Output: Urine (ml) 500 Urinal 500 Other: Intake Quantity Yes Sufficient Number of Voids 0 Toilet 1 Urinal 1 Vital Signs Temp Pulse Resp BP Pulse Ox 37.1 C 82 14 124/58 H 92 05/17/18 03:28 05/17/18 03:28 05/17/18 03:28 05/17/18 03:28 05/17/18 03:28 Laboratory Results 05/17/18 04:21 05/16/18 10:30 ICD10 Worksheet Patient Problems: Problems Problem Status Onset Acute renal insufficiency Acute Closed L1 vertebral fracture Acute Fall from standing Acute Intractable low back pain Acute Cardiomyopathy Acute Chest pain Acute Left bundle branch block Acute
[2018-05-17] MEDS: SENNOSIDES/DOCUSATE SODIUM TAB PO SCH (07:30)
[2018-05-17] MEDS: NATEGLINIDE 60 MG TAB PO SCH ×2 (07:30→12:06)
[2018-05-17] MEDS: CHOLECALCIFEROL VIT D3 1,000 UNITS TAB PO SCH (07:30)
[2018-05-17] MEDS: METHOCARBAMOL 500 MG TAB PO SCH (07:30)
[2018-05-17] MEDS: ASCORBIC ACID 500 MG TAB PO SCH (07:31)
[2018-05-17] MEDS: metFORMIN HCL 500 MG TAB PO SCH (07:31)
[2018-05-17] MEDS: CARVEDILOL 25 MG TAB PO SCH (07:32)
[2018-05-17] MEDS ORDERED: PANTOPRAZOLE SODIUM 40 MG TAB PO SCH (09:00)
[2018-05-17] MEDS ORDERED: LOSARTAN POTASSIUM 50 MG TAB PO SCH (09:00)
[2018-05-17] MEDS ORDERED: FUROSEMIDE 40 MG TAB PO SCH (09:00)
[2018-05-17] MEDS ORDERED: SPIRONOLACTONE 25 MG TAB PO SCH (09:00)
[2018-05-17 11:52] VITALS: BP 146/72
[2018-05-17] MEDS: CARVEDILOL 6.25 MG TAB PO SCH (12:06)
--- NOTE | 2018-05-17 13:29 | PDIAF ---
- Diagnosis Diagnosis: burst fracture L1, mechanical fall Code Status: Full Code - Medication Management Discharge Medications: electronically signed and located in the Home Medication List. - Orders Services needed: Home Care, Registered Nurse, Physical Therapy, Occupational Therapy Home Care Face to Face: I certify that this patient was under my care and that I had the required [id number] encounter meeting the encounter requirements on the discharge day. My findings support the fact that the patient is homebound as defined in Home Care Face to Face Continued: CMS Chapter 7 Medicare Benefits Manual 30.1.1 , The condition of the patient is such that there exists a normal inability to leave home and consequently, leaving home would require a considerable and taxing effort. Diet Recommendation: no restrictions on diet Diet Texture: Regular Texture Diet Activity/Weight Bearing Restrictions: full weight bear, NO BENDIND LIFTING TWISTING (10 lb max lift). have brace on whenever out of bed Additional Instructions: Neurosurgery Discharge Instructions 1. Wear brace when out of bed. May remove for showering and sleeping. 2. Avoid lifting more than 10 pounds and bending/twisting. 3. Follow up with Dr. Grover in 3-4 weeks with new x-rays. 4. Call Dr. Grover's office with any questions/concerns. [phone] - Follow Up Care Current Providers and Referrals: Jair Dykes MD [Primary Care Provider] - As per Instructions Stanton Grover MD [Medical Doctor] - (Follow up in 3-4 weeks)
--- NOTE | 2018-05-17 13:34 | PDDCSUM ---
Discharge Summary Discharge Summary: DISCHARGE DIAGNOSES: * L1 burst fracture * mechanical fall with injury * suspected osteoporosis * hx of cabg * DM2 * HTN * chronic respiratory failure CONSULTANTS: Dr. Kumar from Neurosurgery PROCEDURES: CT scan lumbar spine HOSPITAL COURSE SUMMARY: This patient came into the hospital after a mechanical fall that resulted in an L1 burst fracture. See history and physical. He has no neurologic compromise and CT scan does not show any evidence of canal stenosis. However his fracture is at risk for displacement. The patient was brought in the hospital with severe pain and immobility. He is placed in a brace. He has been treated conservatively with muscle relaxers anti-inflammatory and analgesics. He has improved quite nicely and at this point with brace on his able to get up and walk around independently though he will still need some work with physical therapy and occupational therapy. The patient has been instructed by multiple staff members regarding the risk for displacement of fracture or nonunion fracture and the need to wear his brace whenever he is out of bed. He understands and agrees with this. He also understands his prescribed restrictions of activity clearly. In terms of treatment with medications his security officers and guards have suggested he would be best off without NSAID so I am not recommending use of NSAID going home. He will have Robaxin and tramadol and I have given him a small number of oxycodone to use if the tramadol is not working well enough for him. He is advised that it these medicines may potentially increased fall risk because confusion particularly as he is taking Ativan chronically for sleep at night. I have strongly recommended to him that he follow up with Dr. Dykes and consider changing to a different sleep regimen as Ativan does increased fall risk and the patient has stated that Dr. Dykes has already talked to him about this. I have suggested he make a appointment in the very near future to look at changing this medicine. At age 77 with a fall and lumbar compression burst fracture, the patient very likely has osteoporosis. It may be that he does not have significant osteoporosis and is fact that he was holding a 100 lb weight when he fell that caused the fracture. However I think following up with Dr. Dykes to review his bone risk, check his vitamin-D level and consider getting a DEXA scan is prudent as well. PENDING TEST RESULTS: None MEDICATION CHANGES: Addition of Robaxin 500 four times daily Addition of tramadol 50 mg p.r.n. Pain Addition of oxycodone number 40 tablets 5 mg for p.r.n. Pain use FOLLOW-UP PLAN: With Dr. Kumar as instructed by him With Dr. Dykes in 2-4 weeks Note that this patient was originally admitted on inpatient status. He was severely immobilized by pain in the not expected to recover within 2 days. He has had a much faster recovery from pain and mobility standpoint and inspected and with the brace on he is able to get up and move safely to be home. He will be discharged at this time. Greater than 35 minutes bedside and care coordination time today
--- NOTE | 2018-05-17 15:21 | ASMTCMCOM ---
CM Note CM Note Notes: Pt medically stable for d/c with [facility]. Pt came in after fall at gym, has low back pain and L1 burst fx. Neurosurgery consulted, fx non-surgical and pt has brace. PT/OT rec [facility]. Pt agrees to HC, chooses [facility] and requests to have the home care agency push out a start of care date as long as possible, he hopes for no sooner than Monday. Kamla with [facility] alerted. Pt d/c address/phone verified. Date Signed: 05/17/2018 03:20 PM Electronically Signed By:JUAN CARLOS Doan
--- NOTE | 2018-05-17 16:05 | ASDISCHSUM ---
Discharge Information Plan Status:Home with Home Health Medically Cleared to Leave: Discharge Date:05/17/2018 03:36 PM CM D/C Disposition: ADT D/C Disposition:Home Health Service Projected Discharge Date:05/17/2018 11:00 AM Transportation at D/C: Discharge Delay Reason: Follow-Up Date:05/17/2018 11:00 AM Discharge Slot: Final Diagnosis: Placement Information Referral Type:*Home Health Care Services Referral ID:[id number] Provider Name:[facility] Address 1:[address] Address 2: City:[place] Selection Factors: State:[place] Patient Contact Information Contact Name:TING Relationship:Friend Address: City: [facility] Phone: State/Zip Code:[place] Email: Financial Information Financial Class:Medicare Advantage Plans Primary Plan Desc:[facility] [employer] Primary Plan Number:[id number] Secondary Plan Desc: Secondary Plan Number: Assessment Information LACE LACE Acuity / Level of Answers: Yes Care: Did the patient have an inpatient admission? Comorbidities - select Answers: Cerebrovascular disease all that apply (CVA, TIA, aneurysms, vasc ular dementia) Congestive heart failure Coronary Artery Disease Diabetes (uncontrolled or controlled) Opioid dependence / Chronic pain Previous myocardial infarction Other Notes: HTN # of Emergency department Answers: 1-2 visits in the last 6 months Score: 16 Date Signed: 05/16/2018 12:11 PM Electronically Signed By:Melita Yoder [facility] CM Progress Note CM Note CM Note Notes: Pt medically stable for d/c with [facility]. Pt came in after fall at gym, has low back pain and L1 burst fx. Neurosurgery consulted, fx non-surgical and pt has brace. PT/OT rec [facility]. Pt agrees to , chooses [facility] and requests to have the home care agency push out a start of care date as long as possible, he hopes for no sooner than Monday. Kamla with [facility] alerted. Pt d/c address/phone verified. Date Signed: 05/17/2018 03:20 PM Electronically Signed By:JUAN CARLOS Doan Intervention Information
== END 2018-05-17 15:36 | disposition home health service (06) ==
LOC: INTOOBSV 10:13 → F3N 11:02
PROVIDERS: ADMIT Internal Medicine; ATTEND Internal Medicine
DX: S32.011A Stable burst fracture of first lumbar vertebra, initial encounter for closed fracture (principal); W18.39XA Other fall on same level, initial encounter; Y93.B3 Activity, free weights; Y92.89 Other specified places as the place of occurrence of the external cause; I25.10 Atherosclerotic heart disease of native coronary artery without angina pectoris; I50.20 Unspecified systolic (congestive) heart failure; I44.0 Atrioventricular block, first degree; E11.9 Type 2 diabetes mellitus without complications; G47.33 Obstructive sleep apnea (adult) (pediatric); Z85.00 Personal history of malignant neoplasm of unspecified digestive organ; Z95.810 Presence of automatic (implantable) cardiac defibrillator; Z87.891 Personal history of nicotine dependence
CPT/HCPCS: 72100; 72131; 92523; 97161; 97165; 99285; G0378

== ENCOUNTER → 2018-06-02 | Outpatient (CLI) | payer OTHER | LOC: FIMAGING 08:07 → EDSTATUS 08:09 → FIMAGING 08:10 | PROVIDERS: ATTEND Neurological Surgery | DX: S32.010D Wedge compression fracture of first lumbar vertebra, subsequent encounter for fracture with routine healing (principal) ==

== ENCOUNTER → 2018-06-16 | Outpatient (CLI) | payer OTHER | LOC: FIMAGING 07:11 | PROVIDERS: ATTEND Physician Assistant | DX: S32.010D Wedge compression fracture of first lumbar vertebra, subsequent encounter for fracture with routine healing (principal) ==

== ENCOUNTER → 2018-07-14 | Outpatient (CLI) | payer OTHER | LOC: FIMAGING 08:01 | PROVIDERS: ATTEND Physician Assistant | DX: S32.010A Wedge compression fracture of first lumbar vertebra, initial encounter for closed fracture (principal) ==